=== PATIENT | male | born 1990 | race Caucasian/White ===

== ENCOUNTER 2016-11-06 09:41 | Emergency (ER) | payer MEDICAID ==
[2016-11-06 10:59] LABS: ABSOLUTE BASOPHILS # (AUTO) 0.1 10^3/uL (0.0-0.2); ABSOLUTE EOSINOPHILS # (AUTO) 0.1 10^3/uL (0.0-0.6); ABSOLUTE LYMPHOCYTES (AUTO) 1.8 10^3/uL (0.5-4.7); ABSOLUTE MONOCYTES (AUTO) 0.8 10^3/uL (0.1-1.4); BASOPHILS % (AUTO) 0.5 % (0-2); EOSINOPHILS % (AUTO) 1.1 % (0-6); HEMATOCRIT 41.3 % (37.9-51.0); HEMOGLOBIN 14.4 g/dL (13.5-17.0); HGB HCT DIFFERENCE 1.9; LYMPHOCYTES % (AUTO) 16.4 % (13-45); MEAN CORPUSCULAR HEMOGLOBIN 30.1 pg (27.0-33.4); MEAN CORPUSCULAR HGB CONC 34.8 g/dL (32.0-36.0); MEAN CORPUSCULAR VOLUME 86 fl (80-97); RED BLOOD COUNT 4.78 10^6/uL (4.35-5.55); RED CELL DISTRIBUTION WIDTH 12.6 % (11.5-14.0); WHITE BLOOD COUNT 10.7 10^3/uL (4.0-10.5)
[2016-11-06 11:02] LABS: APPEARANCE,URINE CLEAR; BILIRUBIN,URINE NEGATIVE (NEGATIVE); GLUCOSE, URINE NEGATIVE (NEGATIVE); KETONES,URINE NEGATIVE (NEGATIVE); LEUKOCYTE ESTERASE,URINE NEGATIVE (NEGATIVE); NITRITE,URINE NEGATIVE (NEGATIVE); PROTEIN,URINE NEGATIVE (NEGATIVE); URINE SPECIFIC GRAVITY 1.029; UROBILINOGEN,URINE NEGATIVE mg/dL (<2.0)
[2016-11-06 11:19] LABS: ALANINE AMINOTRANSFERASE 30 U/L (21-72); ALBUMIN 4.3 g/dL (3.5-5.0); ALCOHOL < 10 mg/dL (NONE DETECTED); ALKALINE PHOSPHATASE 64 U/L (38-126); ANION GAP 14 (5-19); ASPARTATE AMINO TRANSFERASE 21 U/L (17-59); BILIRUBIN,TOTAL 0.5 mg/dL (0.2-1.3); BLOOD UREA NITROGEN 15 mg/dL (7-20); CALCIUM 9.9 mg/dL (8.4-10.2); CARBON DIOXIDE 22 mmol/L (22-30); CHLORIDE 105 mmol/L (98-107); CREATININE RESULT 0.78 mg/dL (0.52-1.25); GLUCOSE 85 mg/dL (75-110); POTASSIUM 4.2 mmol/L (3.6-5.0); TOTAL PROTEIN 7.3 g/dL (6.3-8.2)
[2016-11-06 11:28] LABS: URINE BARBITURATES SCREEN NEGATIVE; URINE METHADONE SCREEN NEGATIVE; URINE OPIATES LOW NEGATIVE; URINE PHENCYCLIDINE SCREEN NEGATIVE
--- NOTE | 2016-11-06 13:25 | ER Document Report ---
ED General - General Chief Complaint: Psych Problem Stated Complaint: POSSIBLE OVERDOSE TRAVEL OUTSIDE OF THE [place] IN LAST 30 DAYS: No - HPI Patient complains to provider of: possible overdose Notes: Patient coming in for possible polysubstance overdose. Patient apparently took a bottle of Benadryl Tylenol and salicylates an hour prior to calling EMS. Patient has a history of claiming to have overdoses in the past for psychiatric evaluation. Patient upon evaluation states he took the medications due to "things I have done in the past". Otherwise patient has normal vital signs. Denies fevers chills nausea vomiting diarrhea homicidal ideation - Related Data Allergies/Adverse Reactions: amoxicillin [Amoxicillin] Allergy (Mild, Verified 05/08/15 21:23) Hives Home Medications: Current Home Medications Benztropine Mesylate [Cogentin 1 mg Tablet] 1 mg PO TID 11/06/16 [History] Carbamazepine [Tegretol Xr 200 mg Tab.sr] 200 mg PO TID 11/06/16 [History] Famotidine 20 mg PO TID 11/06/16 [History] Gabapentin [Neurontin 400 mg Capsule] 400 mg PO Q8 11/06/16 [History] Haloperidol 5 mg PO TID 11/06/16 [History] Melatonin/Pyridoxine HCl (B6) [Melatonin 10 mg Tablet] 10 mg PO QHS 11/06/16 [ History] Zolpidem Tartrate [Ambien] 10 mg PO QHS 11/06/16 [History] Past Medical History - Social History Smoking Status: Unknown if Ever Smoked Family History: Reviewed & Not Pertinent - Past Medical History Cardiac Medical History: Reports: Hx Hypercholesterolemia Psychiatric Medical History: Reports: Hx Attention Deficit Hyperactivity Disorder, Hx Bipolar Disorder, Hx Depression, Hx Schizophrenia - Immunizations Hx Diphtheria, Pertussis, Tetanus Vaccination: Yes Review of Systems - Review of Systems Constitutional: No symptoms reported EENT: No symptoms reported Cardiovascular: No symptoms reported Respiratory: No symptoms reported Gastrointestinal: No symptoms reported Genitourinary: No symptoms reported Male Genitourinary: No symptoms reported Musculoskeletal: No symptoms reported Skin: No symptoms reported Hematologic/Lymphatic: No symptoms reported Neurological/Psychological: Other - Overdose -: Yes All other systems reviewed and negative Physical Exam - Vital signs Vitals: Temp Pulse Resp BP Pulse Ox 99.3 F 103 H 20 136/85 H 100 11/06/16 09:43 11/06/16 09:43 11/06/16 09:43 11/06/16 09:43 11/06/16 09:43 Interpretation: Normal - General General appearance: Appears well, Alert - HEENT Head: Normocephalic, Atraumatic Eyes: Normal Pupils: PERRL - Respiratory Respiratory status: No respiratory distress Chest status: Nontender Breath sounds: Normal Chest palpation: Normal - Cardiovascular Rhythm: Regular Heart sounds: Normal auscultation Murmur: No - Abdominal Inspection: Normal Distension: No distension Bowel sounds: Normal Tenderness: Nontender Organomegaly: No organomegaly - Back Back: Normal, Nontender - Extremities General upper extremity: Normal inspection, Nontender, Normal color, Normal ROM , Normal temperature General lower extremity: Normal inspection, Nontender, Normal color, Normal ROM , Normal temperature, Normal weight bearing. No: Karlene's sign - Neurological Neuro grossly intact: Yes Cognition: Normal Orientation: AAOx4 [place] Coma Scale Eye Opening: Spontaneous Linda Coma Scale Verbal: Oriented Linda Coma Scale Motor: Obeys Commands Linda Coma Scale Total: 15 Speech: Normal Motor strength normal: LUE, RUE, LLE, RLE Sensory: Normal - Psychological Associated symptoms: Normal affect, Normal mood - Skin Skin Temperature: Warm Skin Moisture: Dry Skin Color: Normal Course - Re-evaluation Re-evalutation: 11/06/16 13:25 Patient's lab work is not consistent with polysubstance overdose. Patient's vital signs or not consistent with polysubstance overdose patient will be medically cleared for psychiatric evaluation 11/06/16 14:18 Patient is allready had established outpatient psychiatric care they were contacted by her delinquency prevention social worker at this time patient does not meet any IVC criteria will be discharged home. - Vital Signs Vital signs: Temp Pulse Resp BP Pulse Ox 99.3 F 103 H 19 115/79 94 11/06/16 09:43 11/06/16 09:43 11/06/16 13:55 11/06/16 13:55 11/06/16 13:55 - Laboratory Result Diagrams: 11/06/16 10:36 11/06/16 10:36 Laboratory results interpreted by me: 11/06/16 11/06/16 11/06/16 10:36 10:36 10:48 WBC 10.7 H Urine Ascorbic Acid 40 H Acetaminophen < 10 L Discharge - Discharge Clinical Impression: schizo affective , bipolar Condition: Good Disposition: HOME, SELF-CARE Instructions: Schizophrenia ([facility]), Bipolar Disorder ([facility])
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
[2016-11-06 13:58] VITALS: BP 115/79
--- NOTE | 2016-11-06 20:20 | EKG REPORT ---
SEVERITY:- OTHERWISE NORMAL ECG - SINUS TACHYCARDIA LEFT AXIS DEVIATION : Confirmed by: Maureen White 06-Nov-2016 20:19:25
== END 2016-11-06 14:12 | disposition home or self-care (01) ==
LOC: ER 09:41
DX: F25.0 Schizoaffective disorder, bipolar type (principal); T45.0X1A Poisoning by antiallergic and antiemetic drugs, accidental (unintentional), initial encounter; Z79.899 Other long term (current) drug therapy
CPT/HCPCS: 36415; 80053; 80307; 81001; 85025; 93005; 93010; 99285

== ENCOUNTER 2016-12-25 20:33 | Emergency (ER) | payer OTHER ==
[2016-12-25] MEDS ORDERED: NORMAL SALINE 1000 ML 1,000 ML IV ONE (21:32)
[2016-12-25] MEDS ORDERED: ONDANSETRON HCL INJ/PF 4 MG/2 ML SDV IV ONE (21:32)
--- NOTE | 2016-12-25 21:34 | ER Document Report ---
ED General - General Chief Complaint: Nausea/Vomiting/Diarrhea Stated Complaint: VOMITING,DIARRHEA Time seen by provider: 21:30 Notes: Patient is a 26-year-old male that comes emergency department for chief complaint of nausea, vomiting, diarrhea, and chills. Symptoms started today. Patient states he vomited 3-4 times, had about 4-5 episodes of nonbloody diarrhea. He states he has pain in his left upper abdomen. He denies flank pain. He denies any abdominal surgeries. He denies any alcohol or recreational drugs. Past medical history of bipolar, schizophrenia, ADHD. TRAVEL OUTSIDE OF THE [place] IN LAST 30 DAYS: No - Related Data Allergies/Adverse Reactions: amoxicillin [Amoxicillin] Allergy (Mild, Verified 05/08/15 21:23) Hives aripiprazole [From Abilify] Allergy (Verified 12/25/16 20:42) divalproex sodium [From Depakote] Allergy (Verified 12/25/16 20:42) Penicillins Allergy (Verified 12/25/16 20:42) Past Medical History - General Information source: Patient - Social History Smoking Status: Never Smoker Drug Abuse: None Lives with: Family Family History: Reviewed & Not Pertinent - Past Medical History Cardiac Medical History: Reports: Hx Hypercholesterolemia Renal/ Medical History: Denies: Hx Peritoneal Dialysis Psychiatric Medical History: Reports: Hx Attention Deficit Hyperactivity Disorder, Hx Bipolar Disorder, Hx Depression, Hx Schizophrenia Surgical Hx: Negative - Immunizations Hx Diphtheria, Pertussis, Tetanus Vaccination: Yes Review of Systems - Review of Systems Constitutional: See HPI EENT: No symptoms reported Cardiovascular: No symptoms reported Respiratory: No symptoms reported Gastrointestinal: See HPI Genitourinary: No symptoms reported Male Genitourinary: No symptoms reported Musculoskeletal: No symptoms reported Skin: No symptoms reported Hematologic/Lymphatic: No symptoms reported Neurological/Psychological: No symptoms reported Physical Exam - Vital signs Vitals: Temp Pulse Resp BP Pulse Ox 98.8 F 111 H 21 H 126/81 H 96 12/25/16 20:45 12/25/16 20:45 12/25/16 20:45 12/25/16 20:45 12/25/16 20:45 Interpretation: Normal - General General appearance: Appears well, Alert In distress: None - Patient well-appearing and alert - HEENT Head: Normocephalic, Atraumatic Eyes: Normal Conjunctiva: Normal Extraocular movements intact: Yes Eyelashes: Normal Pupils: PERRL Nasal: Normal Mouth/Lips: Normal Mucous membranes: Dry Pharynx: Normal Neck: Normal - Respiratory Respiratory status: No respiratory distress Chest status: Nontender Breath sounds: Normal Chest palpation: Normal - Cardiovascular Rhythm: Regular Heart sounds: Normal auscultation Murmur: No - Abdominal Inspection: Normal Distension: No distension Bowel sounds: Normal Tenderness: Tender - Mild left upper quadrant tenderness on examination, otherwise completely benign abdomen with no tenderness or guarding Organomegaly: No organomegaly - Back Back: Normal, Nontender. No: Tender - Extremities General upper extremity: Normal inspection, Nontender, Normal color, Normal ROM , Normal temperature General lower extremity: Normal inspection, Nontender, Normal color, Normal ROM , Normal temperature, Normal weight bearing. No: Karlene's sign - Neurological Neuro grossly intact: Yes Cognition: Normal Orientation: AAOx4 [place] Coma Scale Eye Opening: Spontaneous [place] Coma Scale Verbal: Oriented [place] Coma Scale Motor: Obeys Commands [place] Coma Scale Total: 15 Speech: Normal Motor strength normal: LUE, RUE, LLE, RLE Sensory: Normal - Psychological Associated symptoms: Normal affect, Normal mood - Skin Skin Temperature: Warm Skin Moisture: Dry Skin Color: Normal Course - Re-evaluation Re-evalutation: Patient states he will not be able to give me a stool sample. Patient is well appearing, has an unremarkable abdominal exam with mild left upper quadrant tenderness, patient states he "gets heartburn all the time". Completely unremarkable. After IV fluids tachycardia from initial vital signs resolved. Patient tolerating by mouth without any difficulty. Suspect viral syndrome based on his presentation, treat for gastritis with omeprazole, discussed follow -up and return precautions with patient and mother, they state understanding and agreement. - Vital Signs Vital signs: Temp Pulse Resp BP Pulse Ox 97.8 F 90 18 131/80 H 97 12/25/16 23:20 12/25/16 23:20 12/25/16 23:20 12/25/16 23:20 12/25/16 23:20 - Laboratory Result Diagrams: 12/25/16 22:00 12/25/16 22:00 Laboratory results interpreted by me: 12/25/16 12/25/16 22:00 22:00 MCHC 36.6 H Glucose 112 H Discharge - Discharge Clinical Impression: Nausea vomiting and diarrhea Condition: Stable Disposition: HOME, SELF-CARE Additional Instructions: Examination, workup, and symptoms are consistent with what is most likely a viral syndrome. This should resolve on its own with time. Take Zofran to prevent nausea/vomiting, take Pepcid to reduce the inflammation/ pain in the stomach, start with plan food such as rice, toast, soup, etc. and slowly progress. Rest. Follow-up with primary care. Return to the emergency department for any concerning symptoms. Prescriptions: Omeprazole 40 mg PO DAILY #30 capsule. Ondansetron [Zofran Odt 4 mg Tablet] 1 - 2 tab PO Q4H PRN #20 tab.rapdis PRN Reason: For Nausea/Vomiting
[2016-12-25 22:18] LABS: ABSOLUTE BASOPHILS # (AUTO) 0.1 10^3/uL (0.0-0.2); ABSOLUTE EOSINOPHILS # (AUTO) 0.2 10^3/uL (0.0-0.6); ABSOLUTE LYMPHOCYTES (AUTO) 3.7 10^3/uL (0.5-4.7); ABSOLUTE MONOCYTES (AUTO) 0.7 10^3/uL (0.1-1.4); ABSOLUTE NEUT (AUTO) 4.3 10^3/uL (1.7-8.2); BASOPHILS % (AUTO) 1.4 % (0-2); EOSINOPHILS % (AUTO) 1.8 % (0-6); HEMATOCRIT 39.4 % (37.9-51.0); HEMOGLOBIN 14.4 g/dL (13.5-17.0); HGB HCT DIFFERENCE 3.8; LYMPHOCYTES % (AUTO) 41.6 % (13-45); MEAN CORPUSCULAR HEMOGLOBIN 31.7 pg (27.0-33.4); MEAN CORPUSCULAR HGB CONC 36.6 g/dL (32.0-36.0); MEAN CORPUSCULAR VOLUME 87 fl (80-97); MONOCYTES % (AUTO) 7.4 % (3-13); RED BLOOD COUNT 4.54 10^6/uL (4.35-5.55); RED CELL DISTRIBUTION WIDTH 13.1 % (11.5-14.0); SEGMENTED NEUTROPHILS % (AUTO) 47.8 % (42-78)
[2016-12-25 22:19] LABS: APPEARANCE,URINE CLEAR; BILIRUBIN,URINE NEGATIVE (NEGATIVE); GLUCOSE, URINE NEGATIVE (NEGATIVE); KETONES,URINE NEGATIVE (NEGATIVE); LEUKOCYTE ESTERASE,URINE NEGATIVE (NEGATIVE); NITRITE,URINE NEGATIVE (NEGATIVE); PROTEIN,URINE NEGATIVE (NEGATIVE); URINE SPECIFIC GRAVITY 1.016; UROBILINOGEN,URINE NEGATIVE mg/dL (<2.0)
[2016-12-25 22:33] LABS: URINE BARBITURATES SCREEN NEGATIVE; URINE METHADONE SCREEN NEGATIVE; URINE OPIATES LOW NEGATIVE; URINE PHENCYCLIDINE SCREEN NEGATIVE
[2016-12-25 22:37] LABS: ALANINE AMINOTRANSFERASE 26 U/L (21-72); ALBUMIN 3.9 g/dL (3.5-5.0); ALKALINE PHOSPHATASE 55 U/L (38-126); ANION GAP 11 (5-19); ASPARTATE AMINO TRANSFERASE 21 U/L (17-59); BILIRUBIN,DIRECT 0.4 mg/dL (0.0-0.4); BILIRUBIN,TOTAL 0.5 mg/dL (0.2-1.3); BLOOD UREA NITROGEN 10 mg/dL (7-20); CALCIUM 8.8 mg/dL (8.4-10.2); CARBON DIOXIDE 25 mmol/L (22-30); CHLORIDE 105 mmol/L (98-107); CREATININE RESULT 0.79 mg/dL (0.52-1.25); GLUCOSE 112 mg/dL (75-110); LIPASE 29.7 U/L (23-300); POTASSIUM 3.7 mmol/L (3.6-5.0); SODIUM 141.4 mmol/L (137-145); TOTAL PROTEIN 7.1 g/dL (6.3-8.2)
[2016-12-25] MEDS ORDERED: FAMOTIDINE 20 MG TABLET PO ONE ×2 (22:47→23:15)
[2016-12-25 23:21] VITALS: BP 131/80
== END 2016-12-25 23:20 | disposition home or self-care (01) ==
LOC: ER 20:33
DX: R11.2 Nausea with vomiting, unspecified (principal); R19.7 Diarrhea, unspecified; R68.83 Chills (without fever); R10.12 Left upper quadrant pain; E78.00 Pure hypercholesterolemia, unspecified; Z88.0 Allergy status to penicillin
CPT/HCPCS: 99284; 36415; 83690; 85025; 80053; 81001; 80307; J3490

== ENCOUNTER 2017-12-24 13:39 | Emergency (ER) | payer MEDICAID ==
[2017-12-24 13:45] VITALS: BP 126/82
== END 2017-12-24 14:10 | disposition left against medical advice (07) ==
LOC: ER 13:39
DX: Z53.21 Procedure and treatment not carried out due to patient leaving prior to being seen by health care provider (principal)

== ENCOUNTER 2017-12-24 21:10 | Emergency (ER) | payer MEDICAID ==
[2017-12-24 22:33] LABS: ABSOLUTE BASOPHILS # (AUTO) 0.1 10^3/uL (0.0-0.2); ABSOLUTE EOSINOPHILS # (AUTO) 0.1 10^3/uL (0.0-0.6); ABSOLUTE LYMPHOCYTES (AUTO) 1.8 10^3/uL (0.5-4.7); ABSOLUTE MONOCYTES (AUTO) 0.7 10^3/uL (0.1-1.4); ABSOLUTE NEUT (AUTO) 6.3 10^3/uL (1.7-8.2); BASOPHILS % (AUTO) 0.7 % (0-2); EOSINOPHILS % (AUTO) 1.5 % (0-6); HEMATOCRIT 41.4 % (37.9-51.0); HEMOGLOBIN 14.2 g/dL (13.5-17.0); LYMPHOCYTES % (AUTO) 20.1 % (13-45); MEAN CORPUSCULAR HEMOGLOBIN 29.9 pg (27.0-33.4); MEAN CORPUSCULAR HGB CONC 34.2 g/dL (32.0-36.0); MEAN CORPUSCULAR VOLUME 87 fl (80-97); MONOCYTES % (AUTO) 7.9 % (3-13); PLATELET COUNT 263 10^3/uL (150-450); RED BLOOD COUNT 4.74 10^6/uL (4.35-5.55); RED CELL DISTRIBUTION WIDTH 13.4 % (11.5-14.0); SEGMENTED NEUTROPHILS % (AUTO) 69.8 % (42-78); TOTAL CELLS COUNTED % (AUTO) 100 %; WHITE BLOOD COUNT 9.1 10^3/uL (4.0-10.5)
--- NOTE | 2017-12-24 22:34 | ER Document Report ---
ED General - General Chief Complaint: Psych Problem Stated Complaint: PSYCH EVAL Time Seen by Provider: 12/24/17 22:19 Cannot obtain history due to: Mentally challenged, Altered mental status Notes: Patient is a 27-year-old male with past medical history of schizoaffective disorder who normally resides in a prison presents with family for concerns of currently being homeless after he left his prison 3 days ago. The patient apparently was removed off of all of his normal medications at [facility] and transition to a new medicine. Since that time the patient has been "not right" per family. History is otherwise extremely limited as the patient answers "yes" to all of my questions and does not provide any meaningful history. He is otherwise calm, cooperative and states he is hungry. He and the family deny any acute medical concerns. TRAVEL OUTSIDE OF THE [place] IN LAST 30 DAYS: No - Related Data Allergies/Adverse Reactions: amoxicillin [Amoxicillin] Allergy (Mild, Verified 05/08/15 21:23) Hives aripiprazole [From Abilify] Allergy (Verified 12/25/16 20:42) divalproex sodium [From Depakote] Allergy (Verified 12/25/16 20:42) Penicillins Allergy (Verified 12/25/16 20:42) Past Medical History - General Information source: Relative, [facility] Records - Social History Smoking Status: Current Every Day Smoker Chew tobacco use (# tins/day): No Frequency of alcohol use: None Drug Abuse: None Lives with: Homeless Family History: Reviewed & Not Pertinent Patient has suicidal ideation: Yes Patient has homicidal ideation: No - Past Medical History Cardiac Medical History: Reports: Hx Hypercholesterolemia Renal/ Medical History: Denies: Hx Peritoneal Dialysis Psychiatric Medical History: Reports: Hx Attention Deficit Hyperactivity Disorder, Hx Bipolar Disorder, Hx Depression, Hx Schizophrenia - Immunizations Hx Diphtheria, Pertussis, Tetanus Vaccination: Yes Review of Systems - Review of Systems Notes: Constitutional: Negative for fever. HENT: Negative for sore throat. Eyes: Negative for visual changes. Cardiovascular: Negative for chest pain. Respiratory: Negative for shortness of breath. Gastrointestinal: Negative for abdominal pain, vomiting or diarrhea. Genitourinary: Negative for dysuria. Musculoskeletal: Negative for back pain. Skin: Negative for rash. Neurological: Negative for headaches, weakness or numbness. 10 point ROS negative except as marked above and in HPI. Physical Exam - Vital signs Vitals: Temp Pulse Resp BP Pulse Ox 97.9 F 101 H 20 135/82 H 96 12/24/17 21:18 12/24/17 21:18 12/24/17 21:18 12/24/17 21:18 12/24/17 21:18 Interpretation: Normal Notes: PHYSICAL EXAMINATION: GENERAL: Somewhat disheveled but in no acute distress HEAD: Atraumatic, normocephalic. EYES: Pupils equal round and reactive to light, extraocular movements intact, sclera anicteric, conjunctiva are normal. ENT: nares patent, oropharynx clear without exudates. Moist mucous membranes. NECK: Normal range of motion, supple without lymphadenopathy LUNGS: Breath sounds clear to auscultation bilaterally and equal. No wheezes rales or rhonchi. HEART: Regular rate and rhythm without murmurs ABDOMEN: Soft, nontender, normoactive bowel sounds. No guarding, no rebound. No masses appreciated. EXTREMITIES: Normal range of motion, no pitting or edema. No cyanosis. NEUROLOGICAL: No focal neurological deficits. Moves all extremities spontaneously and on command. PSYCH: Alert, states his name but does not provide any additional meaningful information. SKIN: Warm, Dry, normal turgor, no rashes or lesions noted. Course - Re-evaluation Re-evalutation: 12/24/17 22:32 Patient presents with family for concerns of increasing confusion and agitation after being taken off all of his medications by [facility] and transition to any medication. He has apparently been on the street out of his prison for the past 3 days. The patient himself does not provide any true meaningful history. He simply says yes to all of my questions. He is uncertain of what happened or why he is here. He is calm and cooperative currently. Based on the report from the family, he will remain in the emergency department. His medical screening exam is unremarkable. Will obtain standard screening laboratories. The patient will be evaluated by psychiatry in the morning. 12/25/17 01:07 Medical screening laboratories are unremarkable. He is cleared for evaluation and disposition by psychiatry. - Vital Signs Vital signs: Temp Pulse Resp BP Pulse Ox 97.9 F 101 H 20 135/82 H 96 12/24/17 21:18 12/24/17 21:18 12/24/17 21:18 12/24/17 21:18 12/24/17 21:18 - Laboratory Result Diagrams: 12/24/17 22:04 12/24/17 22:04 Laboratory results interpreted by me: 12/24/17 22:04 Potassium 3.5 L Salicylates < 1.0 L Acetaminophen < 10 L Discharge - Discharge Clinical Impression: Schizo-affective schizophrenia, Confusion
[2017-12-24 22:44] LABS: ACETAMINOPHEN < 10 ug/mL (10-30); ALANINE AMINOTRANSFERASE 52 U/L (21-72); ALBUMIN 4.1 g/dL (3.5-5.0); ALCOHOL < 10 mg/dL (NONE DETECTED); ALKALINE PHOSPHATASE 63 U/L (38-126); ANION GAP 10 (5-19); ASPARTATE AMINO TRANSFERASE 23 U/L (17-59); BILIRUBIN,DIRECT 0.3 mg/dL (0.0-0.4); BILIRUBIN,TOTAL 0.4 mg/dL (0.2-1.3); BLOOD UREA NITROGEN 11 mg/dL (7-20); CALCIUM 9.8 mg/dL (8.4-10.2); CARBON DIOXIDE 26 mmol/L (22-30); CHLORIDE 106 mmol/L (98-107); GLUCOSE 105 mg/dL (75-110); POTASSIUM 3.5 mmol/L (3.6-5.0); SALICYLATE < 1.0 mg/dL (2.0-20.0); SODIUM 142.2 mmol/L (137-145); TOTAL PROTEIN 6.6 g/dL (6.3-8.2)
--- NOTE | 2017-12-25 00:12 | EKG REPORT ---
SEVERITY:- OTHERWISE NORMAL ECG - SINUS RHYTHM LEFT AXIS DEVIATION : Confirmed by: Vikash Oleary MD 25-Dec-2017 00:11:18
[2017-12-25 01:49] LABS: AMORPHOUS SEDIMENT,URINE TRACE /HPF; APPEARANCE,URINE CLOUDY; BILIRUBIN,URINE NEGATIVE (NEGATIVE); CALCIUM OXALATE CRYSTALS,URINE FEW /HPF; COLOR,URINE AMBER; GLUCOSE, URINE NEGATIVE (NEGATIVE); KETONES,URINE TRACE mg/dL (NEGATIVE); LEUKOCYTE ESTERASE,URINE NEGATIVE (NEGATIVE); NITRITE,URINE NEGATIVE (NEGATIVE); PROTEIN,URINE NEGATIVE (NEGATIVE); URINE SPECIFIC GRAVITY 1.027
[2017-12-25 02:11] LABS: URINE AMPHETAMINES SCREEN NEGATIVE; URINE BARBITURATES SCREEN NEGATIVE; URINE BENZODIAZEPINES SCREEN NEGATIVE; URINE COCAINE SCREEN NEGATIVE; URINE MARIJUANA (THC) SCREEN NEGATIVE; URINE METHADONE SCREEN NEGATIVE; URINE PHENCYCLIDINE SCREEN NEGATIVE
--- NOTE | 2017-12-25 09:23 | ER Document Report ---
Doctor's Note Notes: 12/25/17 09:23 As the rounding physician for our psychiatric patients, I have reviewed the chart, vitals, lab work. Patient has been examined and noted to be resting comfortably. I am awaiting mental health in put. 12/25/17 10:03
[2017-12-25] MEDS ORDERED: BENZTROPINE MESYLATE 1 MG TABLET PO SCH (14:45)
[2017-12-25] MEDS ORDERED: CLONIDINE HCL 0.1 MG TABLET PO SCH (14:45)
[2017-12-25] MEDS ORDERED: CLONIDINE HCL 0.1 MG TABLET PO ONE (16:30)
[2017-12-25] MEDS ORDERED: BENZTROPINE MESYLATE 1 MG TABLET PO ONE (16:30)
[2017-12-25] MEDS: OLANZAPINE 5 MG TABLET PO SCH (19:30)
[2017-12-25] MEDS: LEVETIRACETAM 500 MG TABLET PO SCH (19:30)
--- NOTE | 2017-12-26 09:12 | ER Document Report ---
Doctor's Note Notes: 12/26/17 09:11 This is a 27-year-old man with a history of a schizo affective disorder who was brought into the emergency room with increasing confusion and agitation in the setting of recent medical regimen changes while at [facility]. The patient normally resides at a correction, but is been homeless for the past 3 days in the midst of his psychological decompensation. The patient's labs have been stable. Patient's vital signs have been stable. The patient is being followed by the psychology team. The patient is currently resting comfortably and in no distress. 12/26/17 09:30 12/26/17 16:54 I discussed case with the psychology team who has cleared the patient for outpatient counseling.
[2017-12-26] MEDS: LEVETIRACETAM 500 MG TABLET PO SCH (09:34)
[2017-12-26] MEDS: OLANZAPINE 5 MG TABLET PO SCH (09:34)
[2017-12-26] MEDS ORDERED: BENZTROPINE MESYLATE 1 MG TABLET PO SCH (10:00)
[2017-12-26] MEDS ORDERED: CLONIDINE HCL 0.1 MG TABLET PO SCH (10:00)
--- NOTE | 2017-12-26 11:29 | PSYCHOLOGICAL NOTE ---
Psych Note - Psych Note Psych Note: Reason: Re-Eval Contact permission : Patient's sister Toshia; Patient's mother Jessica Santos ( legal guardian) Patient is a 27-year-old male. Patient reports that he told his mom someone was trying to castrate him at [facility] but that he did not actually believe that. Patient reports he told that to her because he wants to move back in with her. Patient reports that they talk to him in a "mean way" stating they are very disrespectful and treat him back. Patient reports he does not want to go back there and that is why he left the home. Patient reports he is feeling better because he has been able to get sleep and not be in [facility]. Patient reports on a scale of 1 through 10 with 10 being things are better he is out of 10 but cannot give a reason. Patient reports he does not know what would help him. Patient recommendations made by contracted [facility] provider Dr. Yuli MD includes: Prescriptions for the following medications: 1. Keppra 500 mg twice a day 2. Zyprexa 5 mg twice a day 3. Cogentin 1 mg daily 4. Clonidine 0.1 mg daily Collateral Information: Patient's mother and legal guardian Jessica Santos [phone] Patient's mother reports she is upset because of the situation with disability money and having a pay for her [facility] home. Patient's mother reports Medicaid has given her trouble about medications and being able to get them. Patient's mother reports patient has " eyes". Patient's mother reports she is upset because patient's sister loves patient but should not have dated that he was going to go back home. Patient's mother reports that he will go back to [facility] because she really paid half a disability check towards it. Patient's mother reports patient can sleep just for the night. Patient's mother reports she has a lot of medical issues and continued to describe all of her medical issues. Diagnosis: Per Hx 318.1 (F72) Severe Intellectual Developmental Disability ( per mom) Per Hx 295.90 (F20.9) Schizophrenia Impression/Plan: Recommendation to rescind involuntary commitment due to patient not meeting criteria [place] GS 122C. Clinician observed patient has not had any behavioral issues while in the ED, was easily re-directed and did not try to wander out. Clinician observed patient's behaviors were related to social- environmental factors. Patient reported he made good friends there and they were close, he just did not like the staff. Patient reports he will go back if he has to. Recommendation for patient to follow up with medication management provider. Attending physician in agreement with plan. Consulted with Dr. Callejas regarding the management and care of patient.
[2017-12-26 17:25] VITALS: BP 134/76
== END 2017-12-26 17:28 | disposition home or self-care (01) ==
LOC: ER 21:10
DX: F20.9 Schizophrenia, unspecified (principal); Z59.0 Homelessness; F17.200 Nicotine dependence, unspecified, uncomplicated
CPT/HCPCS: 93005; 36415; 80307 ×4; 85025; 80053; 81001; 93010; J3490 ×8

== ENCOUNTER 2018-01-03 22:38 | Emergency (ER) | payer MEDICAID ==
--- NOTE | 2018-01-03 23:08 | ER Document Report ---
ED Psych Disorder / Suicide - General Mode of Arrival: Medic Information source: Patient TRAVEL OUTSIDE OF THE [place] IN LAST 30 DAYS: No <DIMAS REBOLLEDO - Last Filed: 01/04/18 00:14> <DAMION MCCAIN - Last Filed: 01/04/18 01:40> <BINTA FIGUEROA - Last Filed: 01/04/18 10:05> - General Chief Complaint: Homicidal Ideation Stated Complaint: PSYCH EVAL Time Seen by Provider: 01/03/18 22:56 Notes: Patient is a 27 year old male with a history of schizoaffective disorder and a frequent visitor to this ED presents to the emergency department via EMS for homicidal ideation. Patient states the voices in his head are driving him insane and telling him to kill all of the people in town. He states they tell him to kill people by slicing their mouths with knives, cutting their chests open and starting fires. Patient states he has been taking all of his prescribed medicine although he does not remember which ones, further stating he takes approximately 5-6 pills a day. Patient also reports trouble sleeping. (DIMAS REBOLLEDO) - Related Data Allergies/Adverse Reactions: amoxicillin [Amoxicillin] Allergy (Mild, Verified 05/08/15 21:23) Hives aripiprazole [From Abilify] Allergy (Verified 12/25/16 20:42) divalproex sodium [From Depakote] Allergy (Verified 12/25/16 20:42) Penicillins Allergy (Verified 12/25/16 20:42) Past Medical History - General Information source: Patient - Social History Smoking Status: Current Every Day Smoker Chew tobacco use (# tins/day): No Drug Abuse: None Family History: Reviewed & Not Pertinent Patient has suicidal ideation: No Patient has homicidal ideation: No - Past Medical History Cardiac Medical History: Reports: Hx Hypercholesterolemia Psychiatric Medical History: Reports: Hx Attention Deficit Hyperactivity Disorder, Hx Bipolar Disorder, Hx Depression, Hx Schizophrenia - Immunizations Hx Diphtheria, Pertussis, Tetanus Vaccination: Yes <DIMAS REBOLLEDO - Last Filed: 01/04/18 00:14> Review of Systems - Review of Systems Constitutional: No symptoms reported EENT: No symptoms reported Cardiovascular: No symptoms reported Respiratory: No symptoms reported Gastrointestinal: No symptoms reported Genitourinary: No symptoms reported Male Genitourinary: No symptoms reported Musculoskeletal: No symptoms reported Skin: No symptoms reported Hematologic/Lymphatic: No symptoms reported Neurological/Psychological: See HPI, Homicidal ideation -: Yes All other systems reviewed and negative <DIMAS REBOLLEDO - Last Filed: 01/04/18 00:14> Physical Exam - General General appearance: Appears well, Alert, Other - Playing on cell phone during examination, pacing, appears agitated. In distress: None - HEENT Head: Normocephalic, Atraumatic Eyes: Normal Extraocular movements intact: Yes Neck: Normal - Extremities General upper extremity: Normal ROM General lower extremity: Normal ROM - Neurological Neuro grossly intact: Yes Cognition: Normal Orientation: AAOx4 [place] Coma Scale Eye Opening: Spontaneous [place] Coma Scale Verbal: Oriented Linda Coma Scale Motor: Obeys Commands Linda Coma Scale Total: 15 Speech: Normal - Psychological Associated symptoms: Agitated - Skin Skin Temperature: Warm Skin Moisture: Dry Skin Color: Normal <DIMAS REBOLLEDO - Last Filed: 01/04/18 00:14> - Vital signs Vitals: Temp Pulse Resp BP Pulse Ox 98.1 F 104 H 18 126/62 H 97 01/03/18 23:01 01/03/18 23:01 01/03/18 23:01 01/03/18 23:01 01/03/18 23:01 Course - Laboratory Result Diagrams: 01/03/18 23:53 01/03/18 23:53 <DIMAS REBOLLEDO - Last Filed: 01/04/18 00:14> - Laboratory Result Diagrams: 01/03/18 23:53 01/03/18 23:53 - EKG Interpretation by Ok EKG shows normal: Sinus rhythm, [place], Intervals, QRS Complexes, ST-T Waves Rate: Normal - 91 Rhythm: NSR [place]/QRS: Left axis deviation - Borderline left axis deviation <DAMION MCCAIN - Last Filed: 01/04/18 01:40> - Laboratory Result Diagrams: 01/03/18 23:53 01/03/18 23:53 <BINTA FIGUEROA - Last Filed: 01/04/18 10:05> - Re-evaluation Re-evalutation: 01/04/18 00:56 After the Benadryl and Haldol, the patient fell sound asleep. (DAMION MCCAIN) - Vital Signs Vital signs: Temp Pulse Resp BP Pulse Ox 97.3 F 79 20 142/87 H 98 01/04/18 09:37 01/04/18 09:37 01/04/18 09:37 01/04/18 09:37 01/04/18 09:37 - Laboratory Laboratory results interpreted by me: 01/03/18 01/03/18 23:30 23:53 Glucose 141 H Urine Urobilinogen 2.0 H Salicylates < 1.0 L Acetaminophen < 10 L Discharge <DIMAS REBOLLEDO - Last Filed: 01/04/18 00:14> <DAMION MCCAIN - Last Filed: 01/04/18 01:40> <BINTA FIGUEROA - Last Filed: 01/04/18 10:05> - Discharge Clinical Impression: Schizoaffective disorder Qualifiers: Schizoaffective disorder type: unspecified Qualified Code(s): F25.9 - Schizoaffective disorder, unspecified Condition: Stable Disposition: HOME, SELF-CARE Additional Instructions: Schizophrenia Schizophrenia is a chemical disorder that affects how the brain functions. The exact cause is unknown, but it tends to run in families. It is NOT caused by emotional trauma. Schizophrenia causes disordered thinking, including unusual beliefs and inability to "process" happenings around the patient. Patients with schizophrenia benefit greatly from medicine. These medicines are called antipsychotics. Never stop the medicine without the doctor 's approval. Counselling may help the patient deal with his disease. Schizophrenics require a very ordered environment. Stresses and sudden changes may bring out symptoms. Drugs and alcohol abuse may become problems. Contact the counsellor or crisis line if there are thoughts of suicide or of harming others, or if you become aware of unusual thoughts or beliefs Bipolar Disorder Bipolar disorder is also called manic-depressive disorder. Depression alternates with brain hyperactivity called cesar. Each phase lasts from several days to a few weeks. We don't know exactly what causes bipolar disorder , but it's treatable. During the "manic phase," you may feel elated and energetic. You may have racing thoughts, rapid speech, increased activity, and grandiose ideas. During this time, you may not realize how poor your judgement is. Inappropriate spending, drug abuse, excessive alcohol use, marriage problems, and irresponsible sexual behavior are common during the manic phase. During the "depressive phase," you might feel depressed, guilty, worthless , fatigued, and unable to concentrate. You might have thoughts of suicide. Good treatments are available for bipolar disorder. [place] is a classic drug for bipolar disorder, and is still often useful. If the manic phase is very mild, an antidepressant alone can be prescribed. If the manic phase is very severe, an antipsychotic medicine (such as Haldol) may be needed. The treatment must be matched to your symptoms, so it's important to work closely with your psychiatric care provider. Contact your physician, the hospital emergency center, crisis line, or your counsellor if you are losing control or having self-destructive thoughts. Follow up: You have an appointment with your outpatient medication provider at [facility] tomorrow (01/05/18) in the morning per Nel Lino at [facility]. You can return to [facility] per Tasia and Nel. Referrals: SALOMÓN ARMIJO MD [Primary Care Provider] - 01/05/18 Scribe Attestation: 01/04/18 00:09 I personally performed the services described in the documentation, reviewed and edited the documentation which was dictated to the scribe in my presence, and it accurately records my words and actions. (DAMION MCCAIN) Scribe Documentation - Scribe Written by Macie:: Macie Goodman, 01/03/2018 23:28 acting as scribe for :: Symone <DIMAS REBOLLEDO - Last Filed: 01/04/18 00:14>
[2018-01-03] MEDS ORDERED: HALOPERIDOL 5 MG TABLET PO ONE (23:23)
[2018-01-03] MEDS ORDERED: DIPHENHYDRAMINE HCL 50 MG CAPSULE PO ONE (23:23)
[2018-01-03 23:52] LABS: APPEARANCE,URINE CLEAR; BILIRUBIN,URINE NEGATIVE (NEGATIVE); COLOR,URINE YELLOW; GLUCOSE, URINE NEGATIVE (NEGATIVE); KETONES,URINE NEGATIVE (NEGATIVE); LEUKOCYTE ESTERASE,URINE NEGATIVE (NEGATIVE); NITRITE,URINE NEGATIVE (NEGATIVE); PROTEIN,URINE NEGATIVE (NEGATIVE); URINE SPECIFIC GRAVITY 1.019
[2018-01-04 00:02] LABS: ABSOLUTE BASOPHILS # (AUTO) 0.1 10^3/uL (0.0-0.2); ABSOLUTE EOSINOPHILS # (AUTO) 0.1 10^3/uL (0.0-0.6); ABSOLUTE LYMPHOCYTES (AUTO) 2.7 10^3/uL (0.5-4.7); ABSOLUTE MONOCYTES (AUTO) 0.5 10^3/uL (0.1-1.4); ABSOLUTE NEUT (AUTO) 5.8 10^3/uL (1.7-8.2); BASOPHILS % (AUTO) 1.3 % (0-2); EOSINOPHILS % (AUTO) 1.5 % (0-6); HEMATOCRIT 42.7 % (37.9-51.0); HEMOGLOBIN 14.8 g/dL (13.5-17.0); LYMPHOCYTES % (AUTO) 29.3 % (13-45); MEAN CORPUSCULAR HEMOGLOBIN 30.1 pg (27.0-33.4); MEAN CORPUSCULAR HGB CONC 34.7 g/dL (32.0-36.0); MEAN CORPUSCULAR VOLUME 87 fl (80-97); MONOCYTES % (AUTO) 5.2 % (3-13); PLATELET COUNT 296 10^3/uL (150-450); RED BLOOD COUNT 4.92 10^6/uL (4.35-5.55); RED CELL DISTRIBUTION WIDTH 13.3 % (11.5-14.0); SEGMENTED NEUTROPHILS % (AUTO) 62.7 % (42-78); TOTAL CELLS COUNTED % (AUTO) 100 %; WHITE BLOOD COUNT 9.3 10^3/uL (4.0-10.5)
[2018-01-04 00:04] LABS: URINE AMPHETAMINES SCREEN NEGATIVE; URINE BARBITURATES SCREEN NEGATIVE; URINE BENZODIAZEPINES SCREEN NEGATIVE; URINE COCAINE SCREEN NEGATIVE; URINE MARIJUANA (THC) SCREEN NEGATIVE; URINE METHADONE SCREEN NEGATIVE; URINE PHENCYCLIDINE SCREEN NEGATIVE
[2018-01-04 00:15] LABS: ALANINE AMINOTRANSFERASE 44 U/L (21-72); ALBUMIN 4.5 g/dL (3.5-5.0); ALKALINE PHOSPHATASE 60 U/L (38-126); ANION GAP 12 (5-19); ASPARTATE AMINO TRANSFERASE 26 U/L (17-59); BILIRUBIN,DIRECT 0.2 mg/dL (0.0-0.4); BILIRUBIN,TOTAL 0.2 mg/dL (0.2-1.3); BLOOD UREA NITROGEN 13 mg/dL (7-20); CALCIUM 9.9 mg/dL (8.4-10.2); CARBON DIOXIDE 25 mmol/L (22-30); CHLORIDE 102 mmol/L (98-107); GLUCOSE 141 mg/dL (75-110); POTASSIUM 4.1 mmol/L (3.6-5.0); SODIUM 139.2 mmol/L (137-145); TOTAL PROTEIN 7.1 g/dL (6.3-8.2)
[2018-01-04 00:17] LABS: ACETAMINOPHEN < 10 ug/mL (10-30); ALCOHOL < 10 mg/dL (NONE DETECTED); SALICYLATE < 1.0 mg/dL (2.0-20.0)
--- NOTE | 2018-01-04 09:29 | ER Document Report ---
Doctor's Note Notes: 01/04/18 10:05 27-year-old male. Lives in a long-term. History of aggressive behavior. Was hearing voices after getting in an argument on Facebook. Voices were telling him to hurt his sister. Patient was seen here and received some medication last night. Patient is smiling and very talkative this morning. States that he hears no more voices. We discussed the appropriate use of electronic media with regards to social media especially. I have advised that he stop using social media as there is no benefit at all to him getting involved in arguments on Facebook. Patient seemed to appreciate that advised. At this time I feel patient is stable for discharge shortly. Discharge - Discharge Clinical Impression: Schizoaffective disorder Qualifiers: Schizoaffective disorder type: unspecified Qualified Code(s): F25.9 - Schizoaffective disorder, unspecified Condition: Stable Disposition: HOME, SELF-CARE Additional Instructions: Schizophrenia Schizophrenia is a chemical disorder that affects how the brain functions. The exact cause is unknown, but it tends to run in families. It is NOT caused by emotional trauma. Schizophrenia causes disordered thinking, including unusual beliefs and inability to "process" happenings around the patient. Patients with schizophrenia benefit greatly from medicine. These medicines are called antipsychotics. Never stop the medicine without the doctor 's approval. Counselling may help the patient deal with his disease. Schizophrenics require a very ordered environment. Stresses and sudden changes may bring out symptoms. Drugs and alcohol abuse may become problems. Contact the counsellor or crisis line if there are thoughts of suicide or of harming others, or if you become aware of unusual thoughts or beliefs Bipolar Disorder Bipolar disorder is also called manic-depressive disorder. Depression alternates with brain hyperactivity called cesar. Each phase lasts from several days to a few weeks. We don't know exactly what causes bipolar disorder , but it's treatable. During the "manic phase," you may feel elated and energetic. You may have racing thoughts, rapid speech, increased activity, and grandiose ideas. During this time, you may not realize how poor your judgement is. Inappropriate spending, drug abuse, excessive alcohol use, marriage problems, and irresponsible sexual behavior are common during the manic phase. During the "depressive phase," you might feel depressed, guilty, worthless , fatigued, and unable to concentrate. You might have thoughts of suicide. Good treatments are available for bipolar disorder. [place] is a classic drug for bipolar disorder, and is still often useful. If the manic phase is very mild, an antidepressant alone can be prescribed. If the manic phase is very severe, an antipsychotic medicine (such as Haldol) may be needed. The treatment must be matched to your symptoms, so it's important to work closely with your psychiatric care provider. Contact your physician, the hospital emergency center, crisis line, or your counsellor if you are losing control or having self-destructive thoughts. Follow up: You have an appointment with your outpatient medication provider at [facility] Dr. Wilder tomorrow (01/05/18) in the morning per Nel Lino at [facility]. You can return to [facility] per Jesus. Referrals: SALOMÓN WILDER MD [Primary Care Provider] - 01/05/18 Scribe Attestation: 01/04/18 00:09 I personally performed the services described in the documentation, reviewed and edited the documentation which was dictated to the scribe in my presence, and it accurately records my words and actions.
[2018-01-04 11:43] VITALS: BP 147/83
--- NOTE | 2018-01-04 13:27 | PSYCHOLOGICAL NOTE ---
Psych Note - Psych Note Psych Note: Reason for Consult: [place], [place] Contact Permission: Mother/Guardian Jessica Santos [phone] Patient is a 27 year old male who presented to the ED last evening via EMS for hearing voices in his head that were driving him insane and telling him to kill people. Medical documentation says patient said the voices were telling him to kill all the people in town, slice mouths with knives, cut chests open and start fires. Today patient reported his trigger was getting into an argument with his sister on Facebook last night. He admitted he was "angry at his sister and did threaten to kill her." He further reported he was "just angry and would not follow through." He denied hearing voices during the evaluation and said he had not heard voices "in a couple months." He denied current SI/HI. He identified his outpatient medication provider is Dr. Wilder at [facility] and he has had recent medication changes. He did not know names and commented "I got 3-4 new scripts or maybe they were just refills." Patient was alert and oriented to person, place and situation. Mood was euthymic with congruent affect. He denied current SI/HI, admitted to making HI statement toward sister last night and was adamant he was just angry. He did not appear to be responding to internal stimuli as evidenced by fair eye contact , staying on topic, answering questions appropriately when addressed, ability to carry on dialogue conversation and his appropriate engagement and involvement in interactions. Thought process were linear and organized. Conversational speech was within normal limits for rate, tone and prosody. Intellectual abilities are estimated to be average or just below. Insight, judgment and impulse control were fair as evidenced by his appropriate engagement and interactions. Contacted [facility]. Spoke to Tasia Moran. She reported last night patient was on the back porch smoking a cigarette and didn't want to come in at the usual bedtime. When the lift supervisor tried to redirect him he called her a "bitch and slut" then said he wanted to go to the hospital so lift supervisor called . She identified patient has problems with being compliant with check outs and being on time "often disappearing." She stated he has "anger problems." She commented on mother having social security money being put on a card and when he was home last he took it. She confirmed patient sees Dr. Wilder at [facility]. She stated she could provide most recent medication list. Nel Lino called [facility] and provided the following medication list: Keppra 500MG BID, Zyprexa 5MG BID, Cogentin 1MG QD, Clonidine 0.1MG QD, Prozac 30MG QD and Latuda 80MG QD. She noted Dr. Wilder continued the medications [facility] discharged with in addition to the Prozac and Latuda. She identified patient has a medication appointment with Dr. Wilder tomorrow (01/05/18) morning. She stated mother had the following medications at home but these were never provided to the [facility] when he first came: Gabapentin, Haldol and Tegretol. Both Tasia and Nel said patient was welcome to return to the home and Nel noted they have a contract with a [employer] company if he needs transportation back. Contacted patient's mother/legal guardian. She expressed frustration with "nobody listening to h er about what medications were most effective for patient." She noted patient had been to [facility] where they stopped all of his medications for Schizophrenia and only put him on an antidepressant. She stated her concern now is patient being paranoid which is what caused the Facebook issue between him and his sister which resulted in him saying he would kill his sister (no plan, no action). She stated she thinks patient needs to go to [facility] and commented on previous hospitals in [facility] saying he needs heating unit installer treatment. She stated she is disabled and unable to provide transportation for patient to return to [facility]. She was made aware he was being discharged and [facility] would be sending a cab. Diagnosis: 299.0 (F84.0) Autism Spectrum Disorder by history 295.70 (F25.0) Schizoaffective Disorder, Bipolar Type by history Impression/Plan: Patient is psychiatrically cleared (acutely). He denied current HI and stated he has not heard voices in 2 months. He admitted he made a verbal statement about HI towards sister last night after argument but both he and Tasia from [facility] stated he did not make specific comment about plan or take action. Patient further stated he was angry and upset at the time. He had fair eye contact, was able to stay on topic, answered questions appropriately when addressed and was able to have dialogue conversation which suggests he was not responding to internal stimuli or if he was it was not impeding/impairing his ability to engage and interact. Tasia and Nel from [facility] have stated he can return to their facility and are able to call a cab for patient. They confirmed patient's outpatient medication provider is Dr. Wilder at [facility] and has an appointment tomorrow (01/05/18) morning. Notified mother/legal guardian patient was being discharged back to [facility]. Her concern was his paranoia, him being on the wrong medications and the fact she has told [facility] and other providers what was effective but nobody listens. These issues can all be addressed at outpatient medication management appointment in AM. Consulted with Dr. Callejas regarding the management and care of patient.
== END 2018-01-04 11:43 | disposition home or self-care (01) ==
LOC: ER 22:38
DX: F25.0 Schizoaffective disorder, bipolar type (principal); Z79.899 Other long term (current) drug therapy; R45.850 Homicidal ideations; F17.200 Nicotine dependence, unspecified, uncomplicated; Z88.0 Allergy status to penicillin; Z88.8 Allergy status to other drugs, medicaments and biological substances
CPT/HCPCS: 99285; 36415; 80307 ×4; 85025; 80053; 81001; J3490 ×2

== ENCOUNTER 2018-01-08 03:12 | Emergency (ER) | payer MEDICAID ==
[2018-01-08] MEDS ORDERED: FAMOTIDINE 20 MG TABLET PO ONE (04:35)
[2018-01-08] MEDS ORDERED: NAPROXEN 250 MG TABLET PO ONE (04:35)
--- NOTE | 2018-01-08 04:39 | ER Document Report ---
HPI - HPI Patient complains to provider of: leg soreness Pain Level: Denies Context: Patient is a 27-year-old male that comes emergency department for chief complaint of leg pain. He states his legs are tired, sore, and weak. He states this is because he has been walking around town for the past 3 days and is getting more exercise on them than usual. He has a history of schizoaffective disorder, he states he left the homeless prison because he does not like it and he has been walking around town because he prefers this. He states he is planning on going and staying with his sister, he is able to give me the address. He denies SI or HI, denies hallucinations or voices, states that he feels fine except for his legs being tired and sore. He denies fever, nausea vomiting, fever or chills, headache. He states he has been drinking plenty of water intentionally. - REPRODUCTIVE Reproductive: DENIES: : Past Medical History - General Information source: Patient - Social History Smoking Status: Never Smoker Drug Abuse: None Lives with: Other - long term Family History: Reviewed & Not Pertinent - Past Medical History Cardiac Medical History: Reports: Hx Hypercholesterolemia Renal/ Medical History: Denies: Hx Peritoneal Dialysis Psychiatric Medical History: Reports: Hx Attention Deficit Hyperactivity Disorder, Hx Bipolar Disorder, Hx Depression, Hx Schizophrenia Surgical Hx: Negative - Immunizations Hx Diphtheria, Pertussis, Tetanus Vaccination: Yes Vertical Provider Document - CONSTITUTIONAL General Appearance: WD/WN, No Apparent Distress, Obese - INFECTION CONTROL TRAVEL OUTSIDE OF THE [place] IN LAST 30 DAYS: No - HEENT HEENT: Atraumatic, Normal ENT Exam, Normocephalic - NECK Neck: Normal Inspection - RESPIRATORY Respiratory: Breath Sounds Normal, No Respiratory Distress - CARDIOVASCULAR Cardiovascular: Regular Rate, Regular Rhythm - GI/ABDOMEN Gastrointestinal: Abdomen Soft, Abdomen Non-Tender - BACK Back: Normal Inspection - MUSCULOSKELETAL/EXTREMETIES Musculoskeletal/Extremeties: Tender - Patient complains of generalized tenderness over the thighs and calves of both legs, no rigidity, no abnormal firmness, no swelling, normal distal neurovascular exam, normal range of motion. Unremarkable lower extremity exam. - NEURO Level of Consciousness: Awake, Alert, Appropriate Motor/Sensory: No Motor Deficit, No Sensory Deficit - DERM Integumentary: Warm, Dry, No Rash Course - Re-evaluation Re-evalutation: Patient is cooperative, calm, moves with what appears to be soreness in his legs , reports this is from constant walking the past 3 days. Vital signs unremarkable, patient well-appearing, patient provided with naproxen, he states he does not need anything else and he is ready to leave. He states he is going to his sister's house and he easily recites the address. No evidence of psychosis, not suicidal or homicidal, low suspicion of infection, compartment syndrome, or other acute abnormality based on his vital signs and physical examination. Discussed return precautions, patient states understanding and agreement. We contacted patient's sister, she states the patient was supposed to be at the long term and apparently left tonight, she requests that we have the patient wait to be picked up by his mom, she will be coming as soon as possible. Patient in agreement with waiting. - Vital Signs Vital signs: Temp Pulse Resp BP Pulse Ox 97.8 F 95 22 H 128/78 H 95 01/08/18 03:26 01/08/18 03:26 01/08/18 03:26 01/08/18 03:26 01/08/18 03:26 Discharge - Discharge Clinical Impression: Muscle soreness Leg pain Qualifiers: Laterality: bilateral Qualified Code(s): M79.604 - Pain in right leg Condition: Stable Disposition: HOME, SELF-CARE Additional Instructions: Take the naproxen as prescribed for your muscle soreness. Continue to stay hydrated. Rest your legs. Symptoms of pain and soreness should resolve with time. Follow-up with primary care. Return for any concerning symptoms including redness or swelling of the legs, fever, difficulty breathing, passing out, or if something is not right. Prescriptions: Naproxen [Naprosyn 375 Mg Tablet] 375 mg PO BID #20 tablet
[2018-01-08 08:29] VITALS: BP 143/87
== END 2018-01-08 08:29 | disposition home or self-care (01) ==
LOC: ER 03:12
DX: M79.605 Pain in left leg (principal); M79.604 Pain in right leg; M79.1 Myalgia; E78.00 Pure hypercholesterolemia, unspecified; Z59.0 Homelessness
CPT/HCPCS: 99284; J3490 ×2

== ENCOUNTER 2018-01-18 22:31 | Emergency (ER) | payer MEDICAID, OTHER ==
--- NOTE | 2018-01-18 23:50 | ER Document Report ---
ED General - General Chief Complaint: Psych Problem Stated Complaint: PSYCH PROBLEM Time Seen by Provider: 01/18/18 23:31 Notes: Patient is a 27-year-old male presents to the ER frequently. He has a history of psychiatric illness. He stays in a senior care. Today he says that people at the senior care or being rude to him. He cannot give me specific examples. He said that he cannot calm himself down and was becoming extremely angry and agitated and therefore grabbed a staff and came to the hospital. He says he wants to go to a psychiatric hospital. He has no other complaints this time. He says been taking his medications as prescribed. He denies any recent illnesses. Denies any medical problems other than his psychiatric illnesses. TRAVEL OUTSIDE OF THE U[place] IN LAST 30 DAYS: No - Related Data Allergies/Adverse Reactions: amoxicillin [Amoxicillin] Allergy (Mild, Verified 05/08/15 21:23) Hives aripiprazole [From Abilify] Allergy (Verified 12/25/16 20:42) divalproex sodium [From Depakote] Allergy (Verified 12/25/16 20:42) Penicillins Allergy (Verified 12/25/16 20:42) Past Medical History - Social History Smoking Status: Unknown if Ever Smoked Frequency of alcohol use: None Drug Abuse: None Family History: Reviewed & Not Pertinent - Past Medical History Cardiac Medical History: Reports: Hx Hypercholesterolemia Renal/ Medical History: Denies: Hx Peritoneal Dialysis Psychiatric Medical History: Reports: Hx Attention Deficit Hyperactivity Disorder, Hx Bipolar Disorder, Hx Depression, Hx Schizophrenia - Immunizations Hx Diphtheria, Pertussis, Tetanus Vaccination: Yes Review of Systems - Review of Systems Notes: My Normal Review Basic REVIEW OF SYSTEMS: CONSTITUTIONAL : Denies fever, chills, or sweats. Denies recent illness. EENT: Denies eye, ear, throat, or mouth pain or symptoms. Denies nasal or sinus congestion.. RESPIRATORY: Denies cough, cold, or chest congestion. Denies shortness of breath, difficulty breathing, or wheezing. GASTROINTESTINAL: Denies abdominal pain. Denies nausea, vomiting, or diarrhea. Denies constipation. Last BM: GENITOURINARY: Denies difficulty urinating, painful urination, burning, frequency, or blood in urine. MUSCULOSKELETAL: Denies neck or back pain or joint pain or swelling. SKIN: Denies rash or skin lesions. NEUROLOGICAL: Denies altered mental status or loss of consciousness. Denies headache. Denies weakness or paralysis or loss of use of either side. Denies problems with gait or speech. Denies sensory or motor loss. PSYCHIATRIC: Anger and agitation ALL OTHER SYSTEMS REVIEWED AND NEGATIVE. Physical Exam - Vital signs Vitals: Temp Pulse BP Pulse Ox 98.2 F 93 138/80 H 96 01/18/18 22:45 01/18/18 22:45 01/18/18 22:45 01/18/18 22:45 - Notes Notes: General Appearance: Well nourished, alert, cooperative, no acute distress, no obvious discomfort. Well appearing. Vitals: reviewed, See vital signs table. Head: no swelling or tenderness to the head Eyes: PERRL, EOMI, Conjuctiva clear Mouth: No decreasd moisture Lungs: No wheezing, No rales, No rhonci, No accessory muscle use, good air exchange bilaterally. Heart: Normal rate, Regular rythm, No murmur, no rub Abdomen: Normal BS, soft, No rigidity, No abdominal tenderness, No guarding, no rebound, no abdominal masses, no organomegaly Extremities: strength 5/5 in all extremities, good pulses in all extremities, no swelling or tenderness in the extremities, no edema. Skin: warm, dry, appropriate color, no rash Neuro: speech clear, oriented x 3, normal affect, responds appropriately to questions. Course - Re-evaluation Re-evalutation: 01/19/18 02:02 Patient is here voluntarily. He does want to see psychiatry. Is otherwise been appropriate is been here. Is not on involuntary commitment paperwork. Patient is medically stable for psychiatric evaluation. Dictation of this chart was performed using voice recognition software; therefore, there may be some unintended grammatical errors. - Vital Signs Vital signs: Temp Pulse Resp BP Pulse Ox 98.2 F 93 138/80 H 96 01/18/18 22:45 01/18/18 22:45 01/18/18 22:45 01/18/18 22:45 - Laboratory Result Diagrams: 01/19/18 00:03 01/19/18 00:03 Laboratory results interpreted by me: 01/18/18 01/19/18 23:43 00:03 Urine Urobilinogen 2.0 H Salicylates < 1.0 L Acetaminophen < 10 L Discharge - Discharge Clinical Impression: Agitation Condition: Stable Disposition: PSYCH HOSP/UNIT
[2018-01-19 00:14] LABS: ABSOLUTE BASOPHILS # (AUTO) 0.1 10^3/uL (0.0-0.2); ABSOLUTE EOSINOPHILS # (AUTO) 0.1 10^3/uL (0.0-0.6); ABSOLUTE LYMPHOCYTES (AUTO) 2.5 10^3/uL (0.5-4.7); ABSOLUTE MONOCYTES (AUTO) 0.7 10^3/uL (0.1-1.4); BASOPHILS % (AUTO) 0.6 % (0-2); HEMATOCRIT 41.1 % (37.9-51.0); HEMOGLOBIN 14.2 g/dL (13.5-17.0); LYMPHOCYTES % (AUTO) 26.5 % (13-45); MEAN CORPUSCULAR HEMOGLOBIN 29.9 pg (27.0-33.4); MEAN CORPUSCULAR HGB CONC 34.6 g/dL (32.0-36.0); MEAN CORPUSCULAR VOLUME 87 fl (80-97); MONOCYTES % (AUTO) 7.6 % (3-13); PLATELET COUNT 237 10^3/uL (150-450); RED BLOOD COUNT 4.76 10^6/uL (4.35-5.55); RED CELL DISTRIBUTION WIDTH 13.2 % (11.5-14.0); SEGMENTED NEUTROPHILS % (AUTO) 64.3 % (42-78); TOTAL CELLS COUNTED % (AUTO) 100 %; WHITE BLOOD COUNT 9.3 10^3/uL (4.0-10.5)
[2018-01-19 00:15] LABS: APPEARANCE,URINE CLOUDY; BILIRUBIN,URINE NEGATIVE (NEGATIVE); COLOR,URINE YELLOW; GLUCOSE, URINE NEGATIVE (NEGATIVE); KETONES,URINE NEGATIVE (NEGATIVE); LEUKOCYTE ESTERASE,URINE NEGATIVE (NEGATIVE); NITRITE,URINE NEGATIVE (NEGATIVE); PROTEIN,URINE NEGATIVE (NEGATIVE); URINE SPECIFIC GRAVITY 1.021
[2018-01-19 00:27] LABS: ALANINE AMINOTRANSFERASE 52 U/L (21-72); ALBUMIN 4.2 g/dL (3.5-5.0); ALKALINE PHOSPHATASE 57 U/L (38-126); ANION GAP 11 (5-19); ASPARTATE AMINO TRANSFERASE 29 U/L (17-59); BILIRUBIN,DIRECT 0.2 mg/dL (0.0-0.4); BILIRUBIN,TOTAL 0.2 mg/dL (0.2-1.3); BLOOD UREA NITROGEN 15 mg/dL (7-20); CALCIUM 9.8 mg/dL (8.4-10.2); CARBON DIOXIDE 24 mmol/L (22-30); CHLORIDE 104 mmol/L (98-107); GLUCOSE 91 mg/dL (75-110); POTASSIUM 4.2 mmol/L (3.6-5.0); TOTAL PROTEIN 6.7 g/dL (6.3-8.2)
[2018-01-19 00:32] LABS: ACETAMINOPHEN < 10 ug/mL (10-30); ALCOHOL < 10 mg/dL (NONE DETECTED); SALICYLATE < 1.0 mg/dL (2.0-20.0)
[2018-01-19 00:33] LABS: URINE AMPHETAMINES SCREEN NEGATIVE; URINE BARBITURATES SCREEN NEGATIVE; URINE BENZODIAZEPINES SCREEN NEGATIVE; URINE COCAINE SCREEN NEGATIVE; URINE MARIJUANA (THC) SCREEN NEGATIVE; URINE METHADONE SCREEN NEGATIVE; URINE PHENCYCLIDINE SCREEN NEGATIVE
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
--- NOTE | 2018-01-19 10:20 | ER Document Report ---
Doctor's Note Notes: 01/19/18 10:19 Rounds: Chart reviewed. Patient in the shower at the time of my rounds of not interviewed. I am very familiar with this patient from previous stays in our emergency department. History of autism and schizophrenia and bipolar disorder. Lives in a [facility]. Labs are all essentially normal. Vital signs normal as well. Patient appears to be medically stable for transfer or discharge. Ishmael Teresa MD
[2018-01-19 13:10] VITALS: BP 125/67
== END 2018-01-19 13:43 | disposition home or self-care (01) ==
LOC: ER 22:31
DX: F25.0 Schizoaffective disorder, bipolar type (principal); F84.0 Autistic disorder; F79 Unspecified intellectual disabilities; Z79.899 Other long term (current) drug therapy; Z88.0 Allergy status to penicillin; Z88.8 Allergy status to other drugs, medicaments and biological substances
CPT/HCPCS: 36415; 80053; 80307; 81001; 85025; 99285

== ENCOUNTER 2018-01-23 12:00 | Emergency (ER) | payer MEDICAID, OTHER ==
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
--- NOTE | 2018-01-23 13:02 | PSYCHOLOGICAL NOTE ---
Psych Note - Psych Note Psych Note: Reason for consult: Anger, HI Contact permissions: Mother who is guardian and [facility] Patient is a 27 year old male who presented to the ED today via EMS for being angry and having HI towards family. He stated I am in the ED for HI thoughts and tendencies and I didnt want to destroy the longterm I live in so I called the Quality Improvement Specialist. He expressed anger/frustration towards longterm and parents. He stated I really want to take my family out but denied a plan and did not proceed to discuss one. He stated I down right refuse to go back to that longterm, I dont want to go to that tailor with my parents and I dont want to be part of it anymore. He stated he would be homeless. Patient is well known to this ED and this clinician. In fact he has been seen numerous times this year already with most recent being Monday (01/19/18) when he was made aware he cannot get a higher level of care through the hospital. He said Yes thats what I want a higher level of care. Mother is reported legal guardian. Patient informed again that his guardian and clinical home (longterm ) are responsible for seeking and referring to a higher level of care. Patient has a history of Schizoaffective Disorder and likely IDD. Patient was alert and oriented to person, place and situation. Mood was irritable with congruent affect initially and after a few hours he de-escalated to his baseline (happy, easy going, easily redirected, engaged and interactive) . He mentioned HI (typical statement/threat when patient is angry/upset/ frustrated, has not reported any plans or taken action and once he calms ( typically see him when he has already calmed down from crisis event) he admits to making statements/threats and not meaning them. He denied SI and this was never a presenting concern. He did not appear to be responding to internal stimuli as evidenced by fair eye contact (even when upset), answering questions when addressed, appropriately letting clinician know when he didnt want to talk anymore, staying on topic, and carrying on dialogue conversation (more so towards end of stay after he had de-escalated). Thought processes were linear. Conversational speech was within normal limits for rate, tone and prosody. Intellectual abilities are thought to be below average. Insight, judgment and impulse control were fair as evidenced by recognizing his anger/frustration and not wanting to damage home. [facility] Behavioral Health team contacted [facility] (longterm). They stated patient was able to return. They identified todays trigger was staff telling patient how to make his bed and directing him, him getting upset, he asked the staff to call LE, they told patient if he felt he needed LE he needed to call and he did. 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 He reported being angry and upset towards parents and longterm. His demeanor is congruent with being angry and upset. He would not discuss what happened today to upset him. Said would allow him time to himself but would be back to again ask what happened. This is similar etiology from previous visits. He has had 6 already this year (2017) with 4 being the last 2 months. He typically stays overnight or a few hours, calms down and is discharged back to group. Ultimately once patient is calm recommendation to discharge back to longterm. Consulted with Dr. Callejas regarding the management and care of patient. ED Physician in agreement with recommendations. Patient had de-escalated after a few hours of being in the ED. He was more interactive with staff, friendly, easily redirected, no longer focused on not going back to the longterm or parents home and had not made any HI statements/ comments/threats. He had returned to his baseline. Of note is that patient is not developmentally 27 and therefore likely has difficulty expressing self and reacting to situations. Medication recommendations made by the psychiatric medical provider, Dr. Yuli SOLITARIO, include: Add Geodon 20MG IM once for psychosis, agitation
[2018-01-23 13:19] VITALS: BP 127/70
[2018-01-23 14:08] LABS: ABSOLUTE BASOPHILS # (AUTO) 0.1 10^3/uL (0.0-0.2); ABSOLUTE EOSINOPHILS # (AUTO) 0.1 10^3/uL (0.0-0.6); ABSOLUTE LYMPHOCYTES (AUTO) 1.9 10^3/uL (0.5-4.7); ABSOLUTE MONOCYTES (AUTO) 0.3 10^3/uL (0.1-1.4); ABSOLUTE NEUT (AUTO) 3.5 10^3/uL (1.7-8.2); BASOPHILS % (AUTO) 1.1 % (0-2); EOSINOPHILS % (AUTO) 1.8 % (0-6); HEMOGLOBIN 15.3 g/dL (13.5-17.0); LYMPHOCYTES % (AUTO) 32.5 % (13-45); MEAN CORPUSCULAR HGB CONC 34.8 g/dL (32.0-36.0); MEAN CORPUSCULAR VOLUME 86 fl (80-97); MONOCYTES % (AUTO) 5.4 % (3-13); PLATELET COUNT 240 10^3/uL (150-450); RED CELL DISTRIBUTION WIDTH 13.1 % (11.5-14.0); SEGMENTED NEUTROPHILS % (AUTO) 59.2 % (42-78); TOTAL CELLS COUNTED % (AUTO) 100 %; WHITE BLOOD COUNT 5.9 10^3/uL (4.0-10.5)
[2018-01-23 14:39] LABS: ALANINE AMINOTRANSFERASE 48 U/L (21-72); ALBUMIN 4.2 g/dL (3.5-5.0); ALKALINE PHOSPHATASE 60 U/L (38-126); ANION GAP 12 (5-19); ASPARTATE AMINO TRANSFERASE 26 U/L (17-59); BILIRUBIN,DIRECT 0.2 mg/dL (0.0-0.4); BILIRUBIN,TOTAL 0.2 mg/dL (0.2-1.3); BLOOD UREA NITROGEN 12 mg/dL (7-20); CALCIUM 10.1 mg/dL (8.4-10.2); CARBON DIOXIDE 27 mmol/L (22-30); CHLORIDE 104 mmol/L (98-107); GLUCOSE 107 mg/dL (75-110); POTASSIUM 4.4 mmol/L (3.6-5.0); SODIUM 142.5 mmol/L (137-145); TOTAL PROTEIN 7.1 g/dL (6.3-8.2)
[2018-01-23 14:40] LABS: ACETAMINOPHEN < 10 ug/mL (10-30); ALCOHOL < 10 mg/dL (NONE DETECTED); SALICYLATE < 1.0 mg/dL (2.0-20.0)
[2018-01-23 14:57] LABS: APPEARANCE,URINE CLEAR; BILIRUBIN,URINE NEGATIVE (NEGATIVE); COLOR,URINE YELLOW; GLUCOSE, URINE NEGATIVE (NEGATIVE); KETONES,URINE NEGATIVE (NEGATIVE); LEUKOCYTE ESTERASE,URINE NEGATIVE (NEGATIVE); NITRITE,URINE NEGATIVE (NEGATIVE); PROTEIN,URINE NEGATIVE (NEGATIVE); URINE SPECIFIC GRAVITY 1.013; UROBILINOGEN,URINE NEGATIVE mg/dL (<2.0)
[2018-01-23 15:09] LABS: URINE AMPHETAMINES SCREEN NEGATIVE; URINE BARBITURATES SCREEN NEGATIVE; URINE BENZODIAZEPINES SCREEN NEGATIVE; URINE COCAINE SCREEN NEGATIVE; URINE MARIJUANA (THC) SCREEN NEGATIVE; URINE METHADONE SCREEN NEGATIVE; URINE PHENCYCLIDINE SCREEN NEGATIVE
[2018-01-23] MEDS ORDERED: ZIPRASIDONE MESYLATE INJ/PF 20 MG SDV IM ONE (17:11)
--- NOTE | 2018-01-23 23:43 | EKG REPORT ---
SEVERITY:- OTHERWISE NORMAL ECG - SINUS RHYTHM LEFT AXIS DEVIATION : Confirmed by: Maureen White 23-Jan-2018 23:42:47
== END 2018-01-23 18:50 | disposition home or self-care (01) ==
LOC: ER 12:00
DX: F91.9 Conduct disorder, unspecified (principal); F25.0 Schizoaffective disorder, bipolar type; F84.0 Autistic disorder; F79 Unspecified intellectual disabilities; R45.850 Homicidal ideations; Z88.0 Allergy status to penicillin; Z88.8 Allergy status to other drugs, medicaments and biological substances
CPT/HCPCS: 93005; 99285; 96372; 36415; 80307 ×4; 85025; 80053; 81001; 93010; J3486

== ENCOUNTER 2018-04-09 15:12 | Emergency (ER) | payer MEDICAID, OTHER ==
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
[2018-04-09 17:47] LABS: ABSOLUTE BASOPHILS # (AUTO) 0.1 10^3/uL (0.0-0.2); ABSOLUTE EOSINOPHILS # (AUTO) 0.2 10^3/uL (0.0-0.6); ABSOLUTE MONOCYTES (AUTO) 0.7 10^3/uL (0.1-1.4); ABSOLUTE NEUT (AUTO) 8.5 10^3/uL (1.7-8.2); BASOPHILS % (AUTO) 0.6 % (0-2); EOSINOPHILS % (AUTO) 1.7 % (0-6); HEMATOCRIT 42.8 % (37.9-51.0); HEMOGLOBIN 14.6 g/dL (13.5-17.0); LYMPHOCYTES % (AUTO) 24.1 % (13-45); MEAN CORPUSCULAR HEMOGLOBIN 29.8 pg (27.0-33.4); MEAN CORPUSCULAR HGB CONC 34.2 g/dL (32.0-36.0); MEAN CORPUSCULAR VOLUME 87 fl (80-97); MONOCYTES % (AUTO) 5.9 % (3-13); PLATELET COUNT 291 10^3/uL (150-450); RED BLOOD COUNT 4.91 10^6/uL (4.35-5.55); RED CELL DISTRIBUTION WIDTH 13.4 % (11.5-14.0); SEGMENTED NEUTROPHILS % (AUTO) 67.7 % (42-78); TOTAL CELLS COUNTED % (AUTO) 100 %; WHITE BLOOD COUNT 12.6 10^3/uL (4.0-10.5)
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
[2018-04-09 18:10] LABS: ANION GAP 12 (5-19); BLOOD UREA NITROGEN 8 mg/dL (7-20); CALCIUM 9.6 mg/dL (8.4-10.2); CARBON DIOXIDE 27 mmol/L (22-30); CHLORIDE 103 mmol/L (98-107); GLUCOSE 90 mg/dL (75-110); POTASSIUM 4.4 mmol/L (3.6-5.0); SODIUM 141.5 mmol/L (137-145)
[2018-04-09 18:13] LABS: ACETAMINOPHEN < 10 ug/mL (10-30); ALCOHOL < 10 mg/dL (NONE DETECTED)
[2018-04-09] MEDS: OLANZAPINE 5 MG TABLET PO SCH (18:14)
[2018-04-09] MEDS: BENZTROPINE MESYLATE INJ 2 MG/2 ML AMPULE IM SCH (18:15)
[2018-04-09 18:44] LABS: AMORPHOUS SEDIMENT,URINE TRACE /HPF; APPEARANCE,URINE TURBID; BILIRUBIN,URINE NEGATIVE (NEGATIVE); COLOR,URINE YELLOW; GLUCOSE, URINE NEGATIVE (NEGATIVE); KETONES,URINE NEGATIVE (NEGATIVE); LEUKOCYTE ESTERASE,URINE NEGATIVE (NEGATIVE); NITRITE,URINE NEGATIVE (NEGATIVE); PROTEIN,URINE NEGATIVE (NEGATIVE); URINE SPECIFIC GRAVITY 1.018
[2018-04-09 18:56] LABS: URINE AMPHETAMINES SCREEN NEGATIVE; URINE BARBITURATES SCREEN NEGATIVE; URINE BENZODIAZEPINES SCREEN NEGATIVE; URINE COCAINE SCREEN NEGATIVE; URINE MARIJUANA (THC) SCREEN NEGATIVE; URINE METHADONE SCREEN NEGATIVE; URINE PHENCYCLIDINE SCREEN NEGATIVE
[2018-04-10] MEDS: OLANZAPINE 5 MG TABLET PO SCH (09:19)
[2018-04-10] MEDS: BENZTROPINE MESYLATE INJ 2 MG/2 ML AMPULE IM SCH (09:19)
[2018-04-10] MEDS ORDERED: OLANZAPINE 5 MG TABLET PO ONE (12:48)
[2018-04-10] MEDS ORDERED: LEVETIRACETAM 500 MG TABLET PO SCH (13:00)
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
[2018-04-10 15:51] VITALS: BP 123/60
[2018-04-10] MEDS ORDERED: OLANZAPINE 5 MG TABLET PO SCH (18:00)
[2018-04-10] MEDS ORDERED: BENZTROPINE MESYLATE 1 MG TABLET PO SCH (22:00)
[2018-04-10] MEDS ORDERED: CLONIDINE HCL 0.1 MG TABLET PO SCH (22:00)
== END 2018-04-10 16:45 | disposition home or self-care (01) ==
LOC: ER 15:12
DX: R45.850 Homicidal ideations (principal); R45.4 Irritability and anger; Z63.8 Other specified problems related to primary support group; Z91.14 Patient's other noncompliance with medication regimen; Z88.0 Allergy status to penicillin; Z88.8 Allergy status to other drugs, medicaments and biological substances
CPT/HCPCS: 99285; 96372; 36415; 80307 ×3; 85025; 80048; 81001; 82542; J0515 ×2; J3490 ×3

== ENCOUNTER 2018-04-14 01:20 | Emergency (ER) | payer MEDICAID ==
[2018-04-14 02:14] LABS: ABSOLUTE BASOPHILS # (AUTO) 0.1 10^3/uL (0.0-0.2); ABSOLUTE EOSINOPHILS # (AUTO) 0.2 10^3/uL (0.0-0.6); ABSOLUTE MONOCYTES (AUTO) 0.7 10^3/uL (0.1-1.4); ABSOLUTE NEUT (AUTO) 8.9 10^3/uL (1.7-8.2); APPEARANCE,URINE SLIGHTLY-CLOUDY; BASOPHILS % (AUTO) 0.9 % (0-2); BILIRUBIN,URINE NEGATIVE (NEGATIVE); COLOR,URINE AMBER; EOSINOPHILS % (AUTO) 1.5 % (0-6); GLUCOSE, URINE NEGATIVE (NEGATIVE); HEMATOCRIT 41.3 % (37.9-51.0); HEMOGLOBIN 14.2 g/dL (13.5-17.0); KETONES,URINE NEGATIVE (NEGATIVE); LEUKOCYTE ESTERASE,URINE NEGATIVE (NEGATIVE); LYMPHOCYTES % (AUTO) 23.4 % (13-45); MEAN CORPUSCULAR HEMOGLOBIN 29.6 pg (27.0-33.4); MEAN CORPUSCULAR HGB CONC 34.3 g/dL (32.0-36.0); MEAN CORPUSCULAR VOLUME 87 fl (80-97); MONOCYTES % (AUTO) 5.3 % (3-13); NITRITE,URINE NEGATIVE (NEGATIVE); PLATELET COUNT 274 10^3/uL (150-450); PROTEIN,URINE 30 mg/dL (NEGATIVE); RED BLOOD COUNT 4.77 10^6/uL (4.35-5.55); RED CELL DISTRIBUTION WIDTH 13.4 % (11.5-14.0); SEGMENTED NEUTROPHILS % (AUTO) 68.9 % (42-78); TOTAL CELLS COUNTED % (AUTO) 100 %; URINE SPECIFIC GRAVITY 1.028; WHITE BLOOD COUNT 12.9 10^3/uL (4.0-10.5)
[2018-04-14 02:38] LABS: ALANINE AMINOTRANSFERASE 34 U/L (21-72); ALBUMIN 4.5 g/dL (3.5-5.0); ALKALINE PHOSPHATASE 61 U/L (38-126); ANION GAP 15 (5-19); ASPARTATE AMINO TRANSFERASE 20 U/L (17-59); BILIRUBIN,DIRECT 0.3 mg/dL (0.0-0.4); BILIRUBIN,TOTAL 0.5 mg/dL (0.2-1.3); BLOOD UREA NITROGEN 11 mg/dL (7-20); CALCIUM 10.1 mg/dL (8.4-10.2); CARBON DIOXIDE 25 mmol/L (22-30); CHLORIDE 104 mmol/L (98-107); GLUCOSE 92 mg/dL (75-110); POTASSIUM 4.5 mmol/L (3.6-5.0); TOTAL PROTEIN 7.7 g/dL (6.3-8.2)
[2018-04-14 02:39] LABS: ACETAMINOPHEN < 10 ug/mL (10-30); ALCOHOL < 10 mg/dL (NONE DETECTED); SALICYLATE < 1.0 mg/dL (2.0-20.0)
[2018-04-14 02:52] LABS: URINE AMPHETAMINES SCREEN NEGATIVE; URINE BARBITURATES SCREEN NEGATIVE; URINE BENZODIAZEPINES SCREEN NEGATIVE; URINE COCAINE SCREEN NEGATIVE; URINE MARIJUANA (THC) SCREEN NEGATIVE; URINE METHADONE SCREEN NEGATIVE; URINE PHENCYCLIDINE SCREEN NEGATIVE
--- NOTE | 2018-04-14 03:52 | ER Document Report ---
ED General - General Chief Complaint: Psych Problem Stated Complaint: PSYCH EVAL Time Seen by Provider: 04/14/18 02:03 Cannot obtain history due to: Mentally challenged Notes: Patient is a 27-year-old male with a past medical history of developmental delay , history of recurrent psychiatric visits to the emergency department who presents "because I want to kill my whole fucking family". Patient states that he is "done completely" with his family but paces around the room when is asked to clarify exactly what happened this evening. He states he is currently homeless. Does not want anybody from his family to know that he is here or for us to contact his family. He denies acute suicidal ideation. History is otherwise unable to be obtained secondary to the patient's degree of agitation and developmental delay. TRAVEL OUTSIDE OF THE [place] IN LAST 30 DAYS: No - Related Data Allergies/Adverse Reactions: amoxicillin [Amoxicillin] Allergy (Mild, Verified 05/08/15 21:23) Hives aripiprazole [From Abilify] Allergy (Verified 12/25/16 20:42) divalproex sodium [From Depakote] Allergy (Verified 12/25/16 20:42) Penicillins Allergy (Verified 12/25/16 20:42) Past Medical History - General Information source: Patient - Social History Smoking Status: Never Smoker Chew tobacco use (# tins/day): No Frequency of alcohol use: None Drug Abuse: None Lives with: Homeless Family History: Reviewed & Not Pertinent Patient has suicidal ideation: No Patient has homicidal ideation: Yes - Past Medical History Cardiac Medical History: Reports: Hx Hypercholesterolemia Renal/ Medical History: Denies: Hx Peritoneal Dialysis Psychiatric Medical History: Reports: Hx Attention Deficit Hyperactivity Disorder, Hx Bipolar Disorder, Hx Depression, Hx Schizophrenia - Immunizations Hx Diphtheria, Pertussis, Tetanus Vaccination: Yes Review of Systems - Review of Systems Notes: Constitutional: Negative for fever. HENT: Negative for sore throat. Eyes: Negative for visual changes. Cardiovascular: Negative for chest pain. Respiratory: Negative for shortness of breath. Gastrointestinal: Negative for abdominal pain, vomiting or diarrhea. Genitourinary: Negative for dysuria. Musculoskeletal: Negative for back pain. Skin: Negative for rash. Neurological: Negative for headaches, weakness or numbness. 10 point ROS negative except as marked above and in HPI. Physical Exam - Vital signs Vitals: Temp Pulse Resp BP Pulse Ox 97.2 F 108 H 20 135/100 H 98 04/14/18 01:29 04/14/18 01:29 04/14/18 01:29 04/14/18 01:29 04/14/18 01:29 Interpretation: Tachycardic Notes: PHYSICAL EXAMINATION: GENERAL: Agitated, pacing around the room but no distress. HEAD: Atraumatic, normocephalic. EYES: Pupils equal round and reactive to light, extraocular movements intact, sclera anicteric, conjunctiva are normal. ENT: nares patent, oropharynx clear without exudates. Moist mucous membranes. NECK: Normal range of motion, supple without lymphadenopathy LUNGS: Breath sounds clear to auscultation bilaterally and equal. No wheezes rales or rhonchi. HEART: Regular rate and rhythm without murmurs ABDOMEN: Soft, nontender, normoactive bowel sounds. No guarding, no rebound. No masses appreciated. EXTREMITIES: Normal range of motion, no pitting or edema. No cyanosis. NEUROLOGICAL: No focal neurological deficits. Moves all extremities spontaneously and on command. PSYCH: Intellectual abilities appeared below average. Agitated, difficult to redirect but not demonstrating any violent behaviors. SKIN: Warm, Dry, normal turgor, no rashes or lesions noted. Course - Re-evaluation Re-evalutation: 04/14/18 03:50 Presentation of a 27-year-old male well-known to this emergency department and our mental health service who presents with homicidal ideation toward his family although it does not appear that he has true intent or plan to actually harm his family members. Patient seems to have ongoing difficulty in terms of relationships with his family and establishing a functional life outside of the penitentiary. He is currently homeless. He denies any acute medical concerns. His medical screening examination is unremarkable. Medical screening laboratories likewise unremarkable. He is medically cleared for evaluation and disposition per mental health resources. - Vital Signs Vital signs: Temp Pulse Resp BP Pulse Ox 97.2 F 108 H 20 135/100 H 98 04/14/18 01:29 04/14/18 01:29 04/14/18 01:29 04/14/18 01:29 04/14/18 01:29 - Laboratory Result Diagrams: 04/14/18 02:00 04/14/18 02:00 Laboratory results interpreted by me: 04/14/18 04/14/18 04/14/18 02:00 02:00 02:00 WBC 12.9 H Absolute Neutrophils 8.9 H Urine Protein 30 H Urine Urobilinogen 2.0 H Salicylates < 1.0 L Acetaminophen < 10 L - EKG Interpretation by Me Additional EKG results interpreted by me: 04/14/18 03:51 Sinus rhythm. Rate 85. No ST elevations or depressions. QTC is 433. Discharge - Discharge Clinical Impression: Homicidal ideation, Agitation, Homelessness Condition: Fair Referrals: SALOMÓN ARMIJO MD [Primary Care Provider] - Follow up as needed
--- NOTE | 2018-04-14 07:19 | EKG REPORT ---
SEVERITY:- OTHERWISE NORMAL ECG - SINUS RHYTHM BORDERLINE LEFT AXIS DEVIATION : Confirmed by: Vikash Oleary MD 14-Apr-2018 07:17:45
--- NOTE | 2018-04-14 10:11 | ER Document Report ---
Doctor's Note Notes: 04/14/18 10:09 This 27-year-old man presented for evaluation of emotional outburst last night. He has a long history of intellectual disability and difficulty with his behavior. Spoke to her scrap wheeler and psychologist this morning who consulted with his mother and noted that he has been out of his medication for at least a day, current plan is for this patient to be discharged in her care he denies any desire to harm anyone at this time. Denies any self-injurious desire. Has somewhat maintained inside and his mother is agreeable at this time to take them in your care. They will follow-up in 5-7 days in p.o. RT. We will provide a one-week prescription of medications as he has been out of them. We will plan for return in case of any worsening.
[2018-04-14 10:57] VITALS: BP 115/75
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
== END 2018-04-14 10:57 | disposition home or self-care (01) ==
LOC: EEVIPCON 01:20 → ER 01:20
DX: F20.9 Schizophrenia, unspecified (principal); F84.0 Autistic disorder; R45.850 Homicidal ideations; R45.1 Restlessness and agitation; T43.596A Underdosing of other antipsychotics and neuroleptics, initial encounter; T44.3X6A Underdosing of other parasympatholytics [anticholinergics and antimuscarinics] and spasmolytics, initial encounter; T46.5X6A Underdosing of other antihypertensive drugs, initial encounter; T42.6X6A Underdosing of other antiepileptic and sedative-hypnotic drugs, initial encounter; Z91.128 Patient's intentional underdosing of medication regimen for other reason; Z91.14 Patient's other noncompliance with medication regimen; Z59.0 Homelessness; Z88.0 Allergy status to penicillin; Z88.8 Allergy status to other drugs, medicaments and biological substances; R00.0 Tachycardia, unspecified
CPT/HCPCS: 36415; 80053; 80307; 81001; 85025; 93005; 93010; 99285

== ENCOUNTER 2018-04-27 20:38 | Emergency (ER) | payer MEDICAID ==
--- NOTE | 2018-04-27 21:40 | ER Document Report ---
ED Psych Disorder / Suicide - General Chief Complaint: Suicidal Ideation Stated Complaint: SUICIDAL IDEATION Time Seen by Provider: 04/27/18 21:39 TRAVEL OUTSIDE OF THE [place] IN LAST 30 DAYS: No - Related Data Allergies/Adverse Reactions: amoxicillin [Amoxicillin] Allergy (Mild, Verified 05/08/15 21:23) Hives aripiprazole [From Abilify] Allergy (Verified 12/25/16 20:42) divalproex sodium [From Depakote] Allergy (Verified 12/25/16 20:42) Penicillins Allergy (Verified 12/25/16 20:42) Past Medical History - Social History Family History: Reviewed & Not Pertinent - Past Medical History Cardiac Medical History: Reports: Hx Hypercholesterolemia Renal/ Medical History: Denies: Hx Peritoneal Dialysis Psychiatric Medical History: Reports: Hx Attention Deficit Hyperactivity Disorder, Hx Bipolar Disorder, Hx Depression, Hx Schizophrenia - Immunizations Hx Diphtheria, Pertussis, Tetanus Vaccination: Yes Physical Exam - Vital signs Vitals: Temp Pulse Resp BP Pulse Ox 97.4 F 107 H 20 134/79 H 99 04/27/18 20:45 04/27/18 20:45 04/27/18 20:45 04/27/18 20:45 04/27/18 20:45 Course - Vital Signs Vital signs: Temp Pulse Resp BP Pulse Ox 97.4 F 107 H 20 134/79 H 99 04/27/18 20:45 04/27/18 20:45 04/27/18 20:45 04/27/18 20:45 04/27/18 20:45 Discharge - Discharge Referrals: SALOMÓN ARMIJO MD [Primary Care Provider] - Follow up as needed
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
[2018-04-27 22:11] LABS: APPEARANCE,URINE CLEAR; BILIRUBIN,URINE NEGATIVE (NEGATIVE); COLOR,URINE YELLOW; GLUCOSE, URINE NEGATIVE (NEGATIVE); KETONES,URINE NEGATIVE (NEGATIVE); LEUKOCYTE ESTERASE,URINE NEGATIVE (NEGATIVE); NITRITE,URINE NEGATIVE (NEGATIVE); PROTEIN,URINE NEGATIVE (NEGATIVE); URINE SPECIFIC GRAVITY 1.006; UROBILINOGEN,URINE NEGATIVE mg/dL (<2.0)
[2018-04-27 22:12] LABS: ABSOLUTE EOSINOPHILS # (AUTO) 0.2 10^3/uL (0.0-0.6); ABSOLUTE MONOCYTES (AUTO) 0.5 10^3/uL (0.1-1.4); ABSOLUTE NEUT (AUTO) 4.4 10^3/uL (1.7-8.2); BASOPHILS % (AUTO) 0.2 % (0-2); EOSINOPHILS % (AUTO) 2.3 % (0-6); HEMATOCRIT 40.8 % (37.9-51.0); LYMPHOCYTES % (AUTO) 28.5 % (13-45); MEAN CORPUSCULAR HEMOGLOBIN 30.1 pg (27.0-33.4); MEAN CORPUSCULAR HGB CONC 34.4 g/dL (32.0-36.0); MEAN CORPUSCULAR VOLUME 88 fl (80-97); MONOCYTES % (AUTO) 6.4 % (3-13); PLATELET COUNT 266 10^3/uL (150-450); RED BLOOD COUNT 4.66 10^6/uL (4.35-5.55); RED CELL DISTRIBUTION WIDTH 13.4 % (11.5-14.0); SEGMENTED NEUTROPHILS % (AUTO) 62.6 % (42-78); TOTAL CELLS COUNTED % (AUTO) 100 %
[2018-04-27 22:24] LABS: URINE AMPHETAMINES SCREEN NEGATIVE; URINE BARBITURATES SCREEN NEGATIVE; URINE BENZODIAZEPINES SCREEN NEGATIVE; URINE COCAINE SCREEN NEGATIVE; URINE MARIJUANA (THC) SCREEN NEGATIVE; URINE METHADONE SCREEN NEGATIVE; URINE PHENCYCLIDINE SCREEN NEGATIVE
[2018-04-27] MEDS ORDERED: HALOPERIDOL 5 MG TABLET PO ONE (22:31)
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
[2018-04-27 22:35] LABS: ALANINE AMINOTRANSFERASE 38 U/L (21-72); ALBUMIN 4.2 g/dL (3.5-5.0); ALKALINE PHOSPHATASE 55 U/L (38-126); ANION GAP 10 (5-19); ASPARTATE AMINO TRANSFERASE 26 U/L (17-59); BILIRUBIN,DIRECT 0.3 mg/dL (0.0-0.4); BILIRUBIN,TOTAL 0.4 mg/dL (0.2-1.3); BLOOD UREA NITROGEN 4 mg/dL (7-20); CALCIUM 9.2 mg/dL (8.4-10.2); CARBON DIOXIDE 27 mmol/L (22-30); CHLORIDE 104 mmol/L (98-107); GLUCOSE 94 mg/dL (75-110); POTASSIUM 3.9 mmol/L (3.6-5.0); SODIUM 140.6 mmol/L (137-145)
[2018-04-27 22:36] LABS: ACETAMINOPHEN < 10 ug/mL (10-30); ALCOHOL < 10 mg/dL (NONE DETECTED); SALICYLATE < 1.0 mg/dL (2.0-20.0)
--- NOTE | 2018-04-28 05:48 | EKG REPORT ---
SEVERITY:- OTHERWISE NORMAL ECG - SINUS RHYTHM LEFT AXIS DEVIATION : Confirmed by: Vikash Oleary MD 28-Apr-2018 05:47:51
--- NOTE | 2018-04-28 09:57 | ER Document Report ---
Doctor's Note Notes: 04/28/18 09:56 Rounds: Chart reviewed and patient interviewed. Patient is very well-known by me in this ED staff, this being his eighth visit to this ED thus far in the calendar year 2018. Patient says he is having homicidal thoughts about his family. Vital signs are all normal. Lab studies are all normal. Patient appears to be medically stable for transfer or discharge. Ishmael Teresa MD
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
[2018-04-28 18:32] VITALS: BP 132/84
== END 2018-04-28 19:23 | disposition home or self-care (01) ==
LOC: ER 20:38 → EEVIPCON 20:38 → ER 04-28 19:23
DX: R45.850 Homicidal ideations (principal); R62.50 Unspecified lack of expected normal physiological development in childhood; R45.1 Restlessness and agitation
CPT/HCPCS: 36415; 80053; 80307; 81001; 85025; 93005; 93010; 99285

== ENCOUNTER 2018-05-02 20:47 | Emergency (ER) | payer MEDICAID ==
[2018-05-02] MEDS ORDERED: BENZTROPINE MESYLATE 1 MG TABLET PO ONE (21:46)
[2018-05-02] MEDS: OLANZAPINE 5 MG TABLET PO SCH (22:03)
[2018-05-02] MEDS: LEVETIRACETAM 500 MG TABLET PO SCH (22:03)
[2018-05-02] MEDS: CLONIDINE HCL 0.1 MG TABLET PO SCH (22:07)
[2018-05-02 22:25] LABS: ABSOLUTE BASOPHILS # (AUTO) 0.1 10^3/uL (0.0-0.2); ABSOLUTE EOSINOPHILS # (AUTO) 0.2 10^3/uL (0.0-0.6); ABSOLUTE LYMPHOCYTES (AUTO) 3.1 10^3/uL (0.5-4.7); ABSOLUTE MONOCYTES (AUTO) 0.8 10^3/uL (0.1-1.4); ABSOLUTE NEUT (AUTO) 5.4 10^3/uL (1.7-8.2); BASOPHILS % (AUTO) 0.8 % (0-2); EOSINOPHILS % (AUTO) 1.7 % (0-6); HEMATOCRIT 41.6 % (37.9-51.0); HEMOGLOBIN 14.3 g/dL (13.5-17.0); LYMPHOCYTES % (AUTO) 32.4 % (13-45); MEAN CORPUSCULAR HGB CONC 34.5 g/dL (32.0-36.0); MEAN CORPUSCULAR VOLUME 87 fl (80-97); MONOCYTES % (AUTO) 8.3 % (3-13); PLATELET COUNT 284 10^3/uL (150-450); RED BLOOD COUNT 4.78 10^6/uL (4.35-5.55); RED CELL DISTRIBUTION WIDTH 13.1 % (11.5-14.0); SEGMENTED NEUTROPHILS % (AUTO) 56.8 % (42-78); TOTAL CELLS COUNTED % (AUTO) 100 %; WHITE BLOOD COUNT 9.4 10^3/uL (4.0-10.5)
[2018-05-02 22:42] LABS: ALANINE AMINOTRANSFERASE 36 U/L (21-72); ALBUMIN 4.1 g/dL (3.5-5.0); ALKALINE PHOSPHATASE 48 U/L (38-126); ANION GAP 8 (5-19); ASPARTATE AMINO TRANSFERASE 23 U/L (17-59); BILIRUBIN,DIRECT 0.2 mg/dL (0.0-0.4); BILIRUBIN,TOTAL 0.3 mg/dL (0.2-1.3); BLOOD UREA NITROGEN 13 mg/dL (7-20); CARBON DIOXIDE 26 mmol/L (22-30); CHLORIDE 103 mmol/L (98-107); GLUCOSE 94 mg/dL (75-110); POTASSIUM 4.4 mmol/L (3.6-5.0); SODIUM 136.7 mmol/L (137-145); TOTAL PROTEIN 6.9 g/dL (6.3-8.2)
[2018-05-02 22:43] LABS: ACETAMINOPHEN < 10 ug/mL (10-30); ALCOHOL < 10 mg/dL (NONE DETECTED); SALICYLATE < 1.0 mg/dL (2.0-20.0)
--- NOTE | 2018-05-02 22:58 | ER Document Report ---
ED General - General Chief Complaint: Psych Problem Stated Complaint: PSYCH EVAL Time Seen by Provider: 05/02/18 21:33 Mode of Arrival: Ambulatory Information source: Patient Notes: 27-year-old man history of psychiatric history presents to the emergency room with suicidal IV agents. Patient with no definite plan. TRAVEL OUTSIDE OF THE [place] IN LAST 30 DAYS: No - HPI Onset: Just prior to arrival Onset/Duration: Gradual Quality of pain: No pain Severity: None Pain Level: Denies Associated symptoms: denies: Chest pain, Shortness of breath Exacerbated by: Denies Relieved by: Denies Similar symptoms previously: No Recently seen / treated by doctor: No - Related Data Allergies/Adverse Reactions: amoxicillin [Amoxicillin] Allergy (Mild, Verified 04/28/18 04:46) Hives aripiprazole [From Abilify] Allergy (Verified 04/28/18 04:46) divalproex sodium [From Depakote] Allergy (Verified 04/28/18 04:46) Penicillins Allergy (Verified 04/28/18 04:46) Past Medical History - General Information source: Patient - Social History Smoking Status: Never Smoker Cigarette use (# per day): No Chew tobacco use (# tins/day): No Frequency of alcohol use: None Drug Abuse: None Lives with: Family Family History: Reviewed & Not Pertinent Patient has suicidal ideation: No Patient has homicidal ideation: Yes - Past Medical History Cardiac Medical History: Reports: Hx Hypercholesterolemia Renal/ Medical History: Denies: Hx Peritoneal Dialysis Psychiatric Medical History: Reports: Hx Attention Deficit Hyperactivity Disorder, Hx Bipolar Disorder, Hx Depression, Hx Schizophrenia - Immunizations Hx Diphtheria, Pertussis, Tetanus Vaccination: Yes Review of Systems - Review of Systems Constitutional: denies: Chills, Fever EENT: No symptoms reported Cardiovascular: No symptoms reported Respiratory: No symptoms reported Gastrointestinal: No symptoms reported Genitourinary: No symptoms reported Male Genitourinary: No symptoms reported Musculoskeletal: No symptoms reported Skin: No symptoms reported Hematologic/Lymphatic: No symptoms reported Neurological/Psychological: See HPI Physical Exam - Vital signs Notes: Physical exam: GENERAL: A 7-year-old man, alert and oriented 3, no acute distress HEAD: Atraumatic, normocephalic. EYES: Pupils equal round and reactive to light, extraocular movements intact, sclera anicteric, conjunctiva are normal. ENT: TMs normal, nares patent, oropharynx clear without exudates. Moist mucous membranes. NECK: Normal range of motion, supple without obvious mass or JVD. LUNGS: Breath sounds clear to auscultation bilaterally and equal. No wheezes rales or rhonchi. HEART: Regular rate and rhythm without murmurs, rubs or gallops. ABDOMEN: Soft, normoactive bowel sounds. No tenderness to palpation. No guarding, no rebound. No masses appreciated. EXTREMITIES: Normal range of motion, no pitting or edema. No clubbing or cyanosis. NEUROLOGICAL: Cranial nerves II through XII grossly intact. Normal speech, moving all extremities. PSYCH: Depressed affect, complains of SI SKIN: Warm, Dry, normal turgor, no rashes or lesions noted. Course - Laboratory Result Diagrams: 05/02/18 22:10 05/02/18 22:10 Laboratory results interpreted by me: 05/02/18 22:10 Sodium 136.7 L Salicylates < 1.0 L Acetaminophen < 10 L Discharge - Discharge Clinical Impression: Depression, SI Condition: Stable Disposition: HOME, SELF-CARE Referrals: MARCOS MCLEOD, REFERENCE ARCHIVIST-C [Primary Care Provider] - Follow up as needed
[2018-05-02 23:03] LABS: URINE AMPHETAMINES SCREEN NEGATIVE; URINE BARBITURATES SCREEN NEGATIVE; URINE BENZODIAZEPINES SCREEN NEGATIVE; URINE COCAINE SCREEN NEGATIVE; URINE MARIJUANA (THC) SCREEN NEGATIVE; URINE METHADONE SCREEN NEGATIVE; URINE PHENCYCLIDINE SCREEN NEGATIVE
[2018-05-02 23:05] LABS: APPEARANCE,URINE CLEAR; BILIRUBIN,URINE NEGATIVE (NEGATIVE); COLOR,URINE YELLOW; GLUCOSE, URINE NEGATIVE (NEGATIVE); KETONES,URINE NEGATIVE (NEGATIVE); LEUKOCYTE ESTERASE,URINE NEGATIVE (NEGATIVE); NITRITE,URINE NEGATIVE (NEGATIVE); PROTEIN,URINE NEGATIVE (NEGATIVE); URINE SPECIFIC GRAVITY 1.017; UROBILINOGEN,URINE NEGATIVE mg/dL (<2.0)
--- NOTE | 2018-05-03 08:25 | EKG REPORT ---
SEVERITY:- OTHERWISE NORMAL ECG - SINUS RHYTHM LEFT AXIS DEVIATION : Confirmed by: Vikash Oleary MD 03-May-2018 07:42:43
[2018-05-03] MEDS: LEVETIRACETAM 500 MG TABLET PO SCH ×2 (09:20→17:23)
[2018-05-03] MEDS: OLANZAPINE 5 MG TABLET PO SCH ×2 (09:20→17:23)
--- NOTE | 2018-05-03 09:47 | ER Document Report ---
Doctor's Note Notes: 05/03/18 09:46 27-year-old male with past medical history as recorded who is well-known to this department with suicidal ideations without a plan. Psychiatry team is attempting to talk to the patient's mother. Patient is calm and cooperative at this time with vital signs and laboratory work as recorded. 05/03/18 13:22 I have filled out IVC paperwork for the patient is they are attempting to find placement.
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
[2018-05-03] MEDS: CLONIDINE HCL 0.1 MG TABLET PO SCH (23:19)
[2018-05-04] MEDS: LEVETIRACETAM 500 MG TABLET PO SCH (09:33)
[2018-05-04] MEDS: OLANZAPINE 5 MG TABLET PO SCH (09:34)
--- NOTE | 2018-05-04 10:12 | ER Document Report ---
Doctor's Note Notes: 05/04/18 10:12 Rounds: Chart reviewed and patient interviewed. Patient with a known history of autism and delayed development. History of schizo affective disorder. Here for suicidal evaluation. Vital signs are all normal. Lab studies are all essentially normal. Patient appears to be medically stable for transfer or discharge. Ishmael Teresa MD
--- NOTE | 2018-05-04 13:59 | PSYCHOLOGICAL NOTE ---
Psych Note - Psych Note Psych Note: Reason for Consult:Suicidal/homicidal ideation Consent Permissions: Patient refused; patient's mother is legal guardian Lydia Santos [phone], mother Haleigh ([phone]) new assigned [facility] organ recovery coordinator Radha Carroll [phone], assigned APS high school social science teacher 27-year-old man history of psychiatric history presents to the emergency room with suicidal ideation; Patient with no definite plan. Clinician conducted check-in with patient Patient immediately turned around upon the clinician's entering the room and greeted clinician by shaking her hand and saying; "hey how are you?" When asked if he really recognizes clinician he stated he has been using gently many times. When asked about yesterday he stated that he must of been just waking up does not remember. Patient continued to disclose feeling well and stated that he knows there is 5 things that he needs to work on "sleep... patiences...focus...anger...attention." He agrees that he has slept here at [facility]. Patient continued to actually focus on some goals stating that he wanted therapy, make sure his medications are correct, and to see a doctor. Patient is no longer guarded and makes good eye contact. Mood is euthymic with congruent affect. Magnolia Montes, lawn care professional of [facility], contacted clinician to disclose [facility], in [place], she is currently starting the paperwork for approval for that placement. It takes about two weeks. She disclosed she called the patient's mother and explained everything to her also. Behavioral health team contacted patient's mother who disclosed that she does not really understand what is going on. She confirms that she was contacted by Flor Montes of [facility]. Behavior health team spoke with Magnolia, with [facility], who discussed the placement. She also discussed the possibility of long-acting injection. Behavior health team explained patient's outpatient mental health has moved patient off long acting injections which has been used previously in the past. Currently the patient's clinical home would be best course of medication changes. Behavior health team attempted to contact patient's mother; no answer Behavior health team contacted patient's APS high school social science teacher, Radha Carroll; left message Medication recommendations per [facility]'s contracted psychiatrist Dr. Yuli SOLITARIO are as follows 1. Continue home medication of Zyprexa 10 mg twice daily 2. Continue home medication of Keppra 500 mg twice daily 3. Continue home medication of Cogentin 1 mg daily 4. Continue home medication of clonidine 0.1 mg nightly Diagnosis: 295.70 (F25.0) Schizoaffective Disorder, Bipolar Type by history 299.0 (F84.0) Autism Spectrum Disorder by history R/O 318.1 (F72) Intellectual Developmental Disability (reported by mom but has not been tested) Impression\\plan: Patient is recommended for rescind of IVC and is cleared from acute psychiatric services. Patient is presenting at baseline. He is no longer guarded, makes good eye contact with euthymic mood congruent affect. Patient recognizes clinician and engaged in discussion on things that he needs to focus on and goals. Patient has APS case assembler, and [facility] is working a new placement. Dr. Callejas was consulted and the care and management this patient; attending physician is in agreement with augmentations and disposition.
[2018-05-04 14:58] VITALS: BP 125/70
== END 2018-05-04 17:18 | disposition home or self-care (01) ==
LOC: ER 20:47
DX: R45.851 Suicidal ideations (principal); F32.9 Major depressive disorder, single episode, unspecified; R62.50 Unspecified lack of expected normal physiological development in childhood; F84.0 Autistic disorder
CPT/HCPCS: 93005; 99285; 36415; 80307 ×4; 85025; 80053; 81001; 93010; J3490 ×9